=== PATIENT | male | born 1955 | race Caucasian/White ===

== ENCOUNTER 2022-10-07 10:08 | Inpatient (IN) ==
[2022-10-07 10:49] LABS: Basophils # (auto) 0.05 K/uL (0-0.2); Basophils % (auto) 0.8 %; Eosinophils # (auto) 0.07 K/uL (0-0.50); Eosinophils % (auto) 1.2 %; Hematocrit (blood only) 46.1 % (40.1-51.0); Hemoglobin 14.6 g/dl (14.0-18.0); Immature Granulocytes # (auto) 0.01 K/uL (0.00-0.02); Immature Granulocytes % (auto) 0.2 %; Lymphocytes # (auto) 1.31 K/uL (1.2-3.4); Lymphocytes % (auto) 22.2 %; Mean Corpuscular Hemoglobin 29.1 pg (25.0-34.0); Mean Corpuscular Hgb Conc 31.7 g/dL (32.0-36.0); Mean Corpuscular Volume 91.8 fL (80.0-100.0); Mean Platelet Volume 12.3 fL (9.4-12.4); Monocytes % (auto) 10.2 %; Neutrophils # (auto) 3.86 K/uL (1.4-6.5); Neutrophils % (auto) 65.4 %; Platelet Count 124 K/uL (130-400); RDW Coefficient of Variation 14.6 % (11.5-14.5); RDW Standard Deviation 49.1 fL (36.4-46.3); Red Blood Count 5.02 M/uL (4.63-6.08)
[2022-10-07] MEDS ORDERED: ALBUTEROL 0.083% NEBU SOLN 3 ML VIAL NEB STA (11:06)
--- NOTE | 2022-10-07 11:06 | Emergency Department Note ---
Impression & Plan COPD exacerbation, Breath shortness ED Provider Note NAME: RODRIGO SCRUGGS AGE: 67 SEX: M : 1955 ARRIVES VIA: Ambulance INFORMANT: Patient ED PROVIDER(S): Ike Real DO CHIEF COMPLAINT: shortness of breath HPI: Patient is a 67-year-old male with a 40+ year smoker with a past medical history of COPD, diabetes, CVD, hypertension, hyperlipidemia who presents ER for shortness of breath. Symptoms have been present for the past 2 to 3 months. The been gradually getting worse. Been using inhaler with no significant improvement. Symptoms have gotten significant worse today. Saw PCP today and was referred in. They were going to place him on steroids. He denies any belly pain, nausea, vomiting, or diarrhea. No dysuria, urgency, or frequency. No other exacerbating or remitting factors. Again no chest pain. ROS: See above HPI for pertinent positives & negatives. A total of 10 systems reviewed and were otherwise negative. PAST MEDICAL HISTORY:See Below PAST SURGICAL HISTORY:See Below FAMILY HISTORY:See Below SOCIAL HISTORY:See Below HOME MEDICATIONS:See Below ALLERGIES:See Below VITALS:See Below PHYSICAL EXAMINATION: GENERAL: Sitting up in bed, alert, conically ill-appearing, disheveled with persistent cough and dyspneic with conversation EYE EXAM: normal conjunctiva. PERRL and EOM's grossly intact. OROPHARYNX: no exudate, no erythema, lips, buccal mucosa, and tongue normal and mucous membranes are moist NECK: supple, no nuchal rigidity, no adenopathy, non-tender LUNGS: Diffuse wheezing bilaterally with poor air movement. Normal chest wall mechanics HEART: no murmurs, S1 normal and S2 normal ABDOMEN: abdomen soft, non-tender, normo-active bowel sounds, no masses, no rebound or guarding. UPPER EXTREMITIES: upper extremities are grossly normal. LOWER EXTREMITIES: Pitting edema in lower extremities NEURO EXAM: Normal sensorium, cranial nerves II-XII grossly intact, normal speech, no gross weakness of arms, no gross weakness of legs. MEDICAL DECISION MAKING: Patient is a 67-year-old male who presents the ER for shortness of breath referred in by PCP. Upon arrival dyspneic with conversation. IV was established blood work is obtained. Labs show no significant leukocytosis or anemia. INR was unremarkable. BMP was unremarkable. T bili slightly up at 1.4. LFTs bilirubin was unremarkable. Troponin was negative. Influenza RSV and COVID was negative. Chest x-ray was clean. EKG was nondiagnostic. Given hour-long neb treatment as well as steroids and still significantly short of b reath. Discussed with hospitalist for further evaluation. Triage Nursing notes reviewed. Limited review of prior medical records performed Vital Signs: reviewed and remarkable for no significant abnormalities Differential diagnosis: Differential diagnoses includes but is not limited to pneumonia, bronchitis, COPD/Asthma exacerbation, pneumothorax, pulmonary embolism, congestive heart failure, acute coronary syndrome ER treatment provided: See below Diagnostics interpreted by me: ECG: Sinus rhythm rate of 97 Normal axis No PVCs QTC 497 Cardiac Monitoring: An order was placed for continuous cardiac monitoring. The monitor shows a rate of 92 with sinus rhythm. Laboratory studies: As stated above and show below. Imaging studies: Chest x-ray without any focal infiltrate Consultation(s): Discussed with hospitalist Dr. Oscar Love for further evaluation Procedures: none Critical Care: None Past Med/Surg History Medical History BPH (benign prostatic hyperplasia) Cerumen impaction DM (diabetes mellitus), type 2, uncontrolled Elevated liver enzymes Hepatitis C infection Hyperlipidemia Vertebral artery stenosis Surgical History H/O cardiac catheterization History of hand surgery History of hernia repair History of surgical procedure S/P complete atrioventricular canal repair Family History Mother Myocardial infarction Cardiac disorder Father Myocardial infarction Daughter Asthma Brother Cardiac disorder Congestive heart failure Diabetes Sister Diabetes Denies family history of Ovarian cancer Prostate cancer Breast cancer Colorectal cancer Social History Smoking Status: Current every day smoker Tobacco Type: Cigarettes Cigarettes Per Day: 5-6 cigarettes per day; Second Hand Exposure: Yes; Do You Dip or Chew Tobacco: No; Hx Alcohol Use: Yes Hx Substance Use: No Preferred Language: Surinamese Communication Ability: Effective 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 marital status: Current Living Situation: Other Current Living Situation Comment: roomate current occupational status: disabled How many Children do You have: 3 Feels Safe at Home: Yes Childhood Exposure to Second-Hand Smoke: Yes caffeine: Yes Dental Care, Regularly: No Physical Activity Frequency: 1-2 Times per Week Seatbelt Use: always Sunscreen Use: No Assistive Devices: Glasses Allergies Allergies Allergy/AdvReac Type Severity Reaction Status Date / Time No Known Allergies Allergy Verified 10/07/22 15:04 Home Meds Home Medications Medication Instructions Recorded Confirmed aspirin 81 mg tablet,delayed 81 mg PO DAILY 10/07/22 10/07/22 release clopidogrel 75 mg tablet 75 mg PO DAILY 10/07/22 10/07/22 metformin 500 mg tablet 1,000 mg PO BID 10/07/22 10/07/22 pravastatin 40 mg tablet 40 mg PO HS 10/07/22 10/07/22 Previous Rx's Medication Instructions Recorded nicotine 14 mg/24 hr daily 1 patch transdermal DAILY #28 ea 06/26/21 transdermal patch nicotine 21 mg/24 hr daily 1 patch transdermal DAILY #28 ea 06/26/21 transdermal patch nicotine 7 mg/24 hr daily 1 patch transdermal Q24H #28 ea 06/26/21 transdermal patch carvedilol 6.25 mg tablet 6.25 mg PO BID #180 tabs 01/28/22 tamsulosin 0.4 mg capsule 0.4 mg PO DAILY #90 caps 01/28/22 glimepiride 2 mg tablet 4 mg PO DAILY #60 tabs 03/24/22 insulin glargine 100 unit/mL (3 26 unit (0.26 mL) subcut HS #3 mL 04/09/22 mL) subcutaneous pen (Lantus Solostar U-100 Insulin) gabapentin 600 mg tablet 600 mg PO BID #60 tabs 07/03/22 pen needle, diabetic 31 gauge x #100 ea 09/22/2202/04" (BD Ultra-Fine Mini Pen Needle) albuterol sulfate 90 mcg/actuation 2 puff inhalation QID PRN 10/07/22 aerosol inhaler shortness of breath or wheezing #6.7 grams Results & Data (ED) Vital Signs Vital Signs - 24 hr 10/07/22 10:23 10/07/22 10:23 10/07/22 10:23 Temperature 36.8 C Temperature Source Oral Pulse Rate 97 H Respiratory Rate 20 Respiratory Effort / Characteristics Short of Breath Blood Pressure 114/82 Blood Pressure Mean 92 Pulse Oximetry 98 94 Oxygen Delivery Method Room Air Room Air Room Air Sepsis Recent Fever Within 48 Hours No Sepsis New/Unexplained Change in Mental Status N/A Sepsis Action Taken by Nursing No Action Required 10/07/22 10:43 10/07/22 11:00 10/07/22 11:00 Temperature Temperature Source Pulse Rate 95 H Respiratory Rate 21 Respiratory Effort / Characteristics Blood Pressure 117/86 Blood Pressure Mean 96 Pulse Oximetry 94 95 Oxygen Delivery Method Room Air Room Air Sepsis Recent Fever Within 48 Hours Sepsis New/Unexplained Change in Mental Status Sepsis Action Taken by Nursing 10/07/22 11:28 10/07/22 11:31 10/07/22 12:00 Temperature Temperature Source Pulse Rate 101 H 91 H Respiratory Rate 20 18 16 Respiratory Effort / Characteristics Spontaneous Blood Pressure 115/73 Blood Pressure Mean 87 Pulse Oximetry 96 100 100 Oxygen Delivery Method Room Air Nebulizer Nebulizer Sepsis Recent Fever Within 48 Hours Sepsis New/Unexplained Change in Mental Status Sepsis Action Taken by Nursing 10/07/22 12:30 10/07/22 12:30 Temperature Temperature Source Pulse Rate 92 H Respiratory Rate 14 Respiratory Effort / Characteristics Blood Pressure 120/69 Blood Pressure Mean 86 Pulse Oximetry 100 Oxygen Delivery Method Sepsis Recent Fever Within 48 Hours Sepsis New/Unexplained Change in Mental Status Sepsis Action Taken by Nursing Laboratory Data Result diagrams: 10/07/22 10:15 10/07/22 11:24 Lab Results 10/07/22 10/07/22 10/07/22 Range/Units 10:15 10:15 10:15 WBC 5.90 (4.8-10.8) K/ul RBC 5.02 (4.63-6.08) M/uL Hgb 14.6 (14.0-18.0) g/dl Hct 46.1 (40.1-51.0) % MCV 91.8 (80.0-100.0) fL MCH 29.1 (25.0-34.0) pg MCHC 31.7 L (32.0-36.0) g/dL RDW Std Deviation 49.1 H (36.4-46.3) fL RDW Coeff of Epifanio 14.6 H (11.5-14.5) % Plt Count 124 L (130-400) K/uL MPV 12.3 (9.4-12.4) fL Immature Gran % (Auto) 0.2 % Neut % (Auto) 65.4 % Lymph % (Auto) 22.2 % [place] % (Auto) 10.2 % Eos % (Auto) 1.2 % Baso % (Auto) 0.8 % Neut # (Auto) 3.86 (1.4-6.5) K/uL Lymph # (Auto) 1.31 (1.2-3.4) K/uL [place] # (Auto) 0.60 (0.24-0.82) K/uL Eos # (Auto) 0.07 (0-0.50) K/uL Baso # (Auto) 0.05 (0-0.2) K/uL Immature Gran # (Auto) 0.01 (0.00-0.02) K/uL PT Cancelled INR Cancelled APTT Cancelled PTT Ratio Cancelled Sodium Cancelled Potassium Cancelled Chloride Cancelled Carbon Dioxide Cancelled Anion Gap Cancelled BUN Cancelled Creatinine Cancelled Est Cr Clr Drug Dosing Cancelled Est GFR ( Amer) Cancelled Est GFR (Non-Af Amer) Cancelled BUN/Creatinine Ratio Cancelled Glucose Cancelled Calcium Cancelled Magnesium Cancelled Total Bilirubin Cancelled AST Cancelled ALT Cancelled Alkaline Phosphatase Cancelled Troponin I High Sens Cancelled Total Protein Cancelled Albumin Cancelled Globulin Cancelled Albumin/Globulin Ratio Cancelled SARS-CoV-2 (PCR) (Negative) Influenza Type A (PCR) (Neg) Influenza Type B (PCR) (Neg) RSV (RT-PCR) (Neg) 10/07/22 10/07/22 10/07/22 Range/Units 11:15 11:24 11:24 WBC (4.8-10.8) K/ul RBC (4.63-6.08) M/uL Hgb (14.0-18.0) g/dl Hct (40.1-51.0) % MCV (80.0-100.0) fL MCH (25.0-34.0) pg MCHC (32.0-36.0) g/dL RDW Std Deviation (36.4-46.3) fL RDW Coeff of Epifanio (11.5-14.5) % Plt Count (130-400) K/uL MPV (9.4-12.4) fL Immature Gran % (Auto) % Neut % (Auto) % Lymph % (Auto) % [place] % (Auto) % Eos % (Auto) % Baso % (Auto) % Neut # (Auto) (1.4-6.5) K/uL Lymph # (Auto) (1.2-3.4) K/uL [place] # (Auto) (0.24-0.82) K/uL Eos # (Auto) (0-0.50) K/uL Baso # (Auto) (0-0.2) K/uL Immature Gran # (Auto) (0.00-0.02) K/uL PT 12.8 H INR 1.2 H APTT 26.5 PTT Ratio 1.0 Sodium 140 Potassium 4.8 Chloride 106 Carbon Dioxide 28 Anion Gap 6 BUN 13 Creatinine 0.86 Est Cr Clr Drug Dosing 102.6 Est GFR ( Amer) 105.5 Est GFR (Non-Af Amer) 91.0 BUN/Creatinine Ratio 15.1 Glucose 85 Calcium 9.3 Magnesium 1.8 Total Bilirubin 1.4 H AST 54 H ALT 44 Alkaline Phosphatase 78 Troponin I High Sens 17.7 Total Protein 7.4 Albumin 4.0 Globulin 3.4 Albumin/Globulin Ratio 1.2 SARS-CoV-2 (PCR) NEGATIVE (Negative) Influenza Type A (PCR) Negative (Neg) Influenza Type B (PCR) Negative (Neg) RSV (RT-PCR) Negative (Neg) Administered Medications Discontinued Medications Albuterol (Albuterol 0.083% Nebu Soln 3 Ml Vial) 10 mg NEB NOW STA; Protocol Stop: 10/07/22 11:07 Last Admin: 10/07/22 11:27 Dose: 10 mg Documented By: KALIA Methylprednisolone (Methylprednisolone 40 Mg/Ml Vial) 40 mg IV NOW STA Stop: 10/07/22 11:07 Last Admin: 10/07/22 11:15 Dose: 40 mg Documented By: GARY Imaging Data Radiologist's Impression: Chest X-Ray 10/07/22 10:42 XR chest 1V portable CLINICAL HISTORY: SOB TECHNIQUE: Single frontal radiograph of the chest was obtained. Comparison: Comparison is made to low-dose CT chest 07/20/2022 FINDINGS: Median sternotomy wires are unchanged. Cardiomegaly is noted. The aortic arch is calcified. The lungs are clear. No evidence of pleural effusion or pneumothorax. IMPRESSION: No acute chest disease. Cardiomegaly is noted. ACT 112: Negative or not required by law. Electronically signed by: Star Padgett M.D. 10/07/2022 11:09 AM Discharge Plan Visit Data Chief Complaint: Shortness of Breath/Dyspnea Stated Complaint: SOB, EDEMA TO LOWER EXTREMITIES, RASH ON ELBOWS, ED Provider: Ike Real Discharge Problem: COPD exacerbation, Breath shortness Patient Disposition: Admitted As Inpatient Discharge Instructions Interventions: ED Discharge Assessment Last Done: 10/07/22 16:27
--- NOTE | 2022-10-07 11:10 | XRay Report ---
XR chest 1V portable CLINICAL HISTORY: SOB TECHNIQUE: Single frontal radiograph of the chest was obtained. Comparison: Comparison is made to low-dose CT chest 07/20/2022 FINDINGS: Median sternotomy wires are unchanged. Cardiomegaly is noted. The aortic arch is calcified. The lungs are clear. No evidence of pleural effusion or pneumothorax. IMPRESSION: No acute chest disease. Cardiomegaly is noted. ACT 112: Negative or not required by law. Electronically signed by: Star Padgett M.D. 10/07/2022 11:09 AM
[2022-10-07 11:51] LABS: INR 1.2 (0.9-1.1); Partial Thromboplastin Time 26.5 Seconds (21.0-31.0); Prothrombin Time 12.8 Seconds (9.0-12.0)
[2022-10-07 12:02] LABS: Troponin I High Sensitivity 17.7 pg/ml (0-20)
[2022-10-07 12:02] LABS: Influenza A virus by PCR Negative (Neg); Influenza B virus by PCR Negative (Neg); RSV by PCR Negative (Neg); SARS CoV2 RNA(COVID-19)Cepheid NEGATIVE (Negative)
[2022-10-07 12:09] LABS: Albumin Globulin Ratio 1.2 (0.9-2); BUN Creatinine Ratio 15.1 (10-20); Bilirubin,Total 1.4 mg/dl (0.2-1.0); Calcium 9.3 mg/dl (8.5-10.1); Creatinine Clr Calc Pharmacy 102.6 ml/min; Est GFR (African American) 105.5 ml/min; Globulin 3.4 gm/dl (2.5-4.0); Magnesium 1.8 mg/dl (1.7-2.4); Potassium 4.8 mmol/L (3.5-5.1); Total Protein 7.4 gm/dl (6.0-8.3)
--- NOTE | 2022-10-07 14:09 | Electrocardiogram Report ---
Test Reason : Blood Pressure : / mmHG Vent. Rate : 097 BPM Atrial Rate : 097 BPM P-R Int : 150 ms QRS Dur : 098 ms QT Int : 392 ms P-R-T Axes : 050 038 082 degrees QTc Int : 497 ms Normal sinus rhythm Low voltage QRS Nonspecific T wave abnormality Abnormal ECG No previous ECGs available Confirmed by Sebastian Leon ([id number]) on 10/07/2022 2:09:20 PM Referred By: REFERRED SELF Confirmed By:Sebastian Leon
--- NOTE | 2022-10-07 14:38 | History & Physical Report ---
Date of Service October 07, 2022 Assessment & Plan (1) COPD exacerbation: Plan: 0-2 cigarettes a day, previously quit for 5 years. Lung function tests recommended as outpatient Ora Talbot - has sample from his PCP office with him, will start this now Azithromycin 500mg PO daily for 3 days Duonebs QID Solu-medrol 40mg IV BID Likely can be switched to PO prednisone tomorrow and consider discharge, consider duonebs at home (pt reports having the machine) (2) Leg swelling: Plan: Suspect some right sided heart failure in setting of COPD He also has known hepatitis C of his liver Will get urine protein/cr ratio to complete workup for renal involvement TTE to assess for congestive heart failure and possible benefit of diuretics - he also has known aortic stenosis so will assess whether this has progressed US venous doppler to r/o DVT (3) Smoker: Plan: Smoking cessation discussed with patient. Declined nicotine patch. (4) Pruritic rash: Plan: Used new body wash this morning Appears allergic, will start Tina and (steroids for COPD) (5) DM (diabetes mellitus), type 2, uncontrolled: Plan: HBA1C 6.8 in March, will repeat with AM labs Consult pharmacy for glycemic control during inpatient admission while on steroids (6) Peripheral neuropathy: Plan: Continue his routine gabapentin 600mg PO BID (7) HTN (hypertension): Plan: Continue carvedilol 6.25mg PO BID (8) BPH (benign prostatic hyperplasia): Plan: Continue tamsulosin 0.4mg PO daily (9) Coronary artery disease: Plan: Continue aspirin, clopidogrel, carvedilol and pravastatin Plan VTE Prophyalxis - lovenox 40mg SQ daily Diet - heart healthy Disposition - observation status to med/surg Admission and Anticipated Discharge Date Admission Date: October 07, 2022 History of Present Illness Chief Complaint: Shortness of breath Primary Care Provider: Kerry Heller MD Silvano Koehler is a 67 year old male who presents to the ER with shortness of breath. He reports this has been going on for many months and needing his albuterol inhaler on a daily basis but he has been much worse over the last week with associated swelling in both his legs. He reports seeing his primary care physician today and recommended going to the ER due to the severity of his symptoms but he was given a Trelegy Ellipta inhaler to start using. He reports not taking a course of steroids or being on a maintenance inhaler prior to this. Asscoaited non productive cough. No chest pain, nasal congestion, fever, chills, sinus pain. In the ER he was given Solu-medrol and an hour long duoneb which he reports feeling much improved compared to his 20 minute duoneb at home. Given significant respiratory distress and wheezing despite not needing oxygen he was referred to medicine for admission and management of COPD exacerbation. Allergies Allergy/AdvReac Type Severity Reaction Status Date / Time No Known Allergies Allergy Verified 10/07/22 15:04 Home Medications Medication Instructions Recorded Confirmed Type nicotine 14 mg/24 hr daily 1 patch transdermal DAILY #28 ea 06/26/21 10/07/22 Rx transdermal patch nicotine 21 mg/24 hr daily 1 patch transdermal DAILY #28 ea 06/26/21 10/07/22 Rx transdermal patch nicotine 7 mg/24 hr daily 1 patch transdermal Q24H #28 ea 06/26/21 10/07/22 Rx transdermal patch carvedilol 6.25 mg tablet 6.25 mg PO BID #180 tabs 01/28/22 10/07/22 Rx tamsulosin 0.4 mg capsule 0.4 mg PO DAILY #90 caps 01/28/22 10/07/22 Rx glimepiride 2 mg tablet 4 mg PO DAILY #60 tabs 03/24/22 10/07/22 Rx insulin glargine 100 unit/mL (3 26 unit (0.26 mL) subcut HS #3 mL 04/09/22 10/07/22 Rx mL) subcutaneous pen (Lantus Solostar U-100 Insulin) gabapentin 600 mg tablet 600 mg PO BID #60 tabs 07/03/22 10/07/22 Rx pen needle, diabetic 31 gauge x #100 ea 09/22/22 Rx 3/16" (BD Ultra-Fine Mini Pen Needle) albuterol sulfate 90 mcg/actuation 2 puff inhalation QID PRN 10/07/22 10/07/22 Rx aerosol inhaler shortness of breath or wheezing #6.7 grams aspirin 81 mg tablet,delayed 81 mg PO DAILY 10/07/22 10/07/22 History release clopidogrel 75 mg tablet 75 mg PO DAILY 10/07/22 10/07/22 History metformin 500 mg tablet 1,000 mg PO BID 10/07/22 10/07/22 History pravastatin 40 mg tablet 40 mg PO HS 10/07/22 10/07/22 History Past Med/Surg History Medical History BPH (benign prostatic hyperplasia) Cerumen impaction DM (diabetes mellitus), type 2, uncontrolled Elevated liver enzymes Hepatitis C infection Hyperlipidemia Vertebral artery stenosis Surgical History H/O cardiac catheterization History of hand surgery History of hernia repair History of surgical procedure S/P complete atrioventricular canal repair Family History Mother Myocardial infarction Cardiac disorder Father Myocardial infarction Daughter Asthma Brother Cardiac disorder Congestive heart failure Diabetes Sister Diabetes Denies family history of Ovarian cancer Prostate cancer Breast cancer Colorectal cancer Social History Smoking Status: Current every day smoker Tobacco Type: Cigarettes Cigarettes Per Day: 5-6 cigarettes per day; Second Hand Exposure: Yes; Do You Dip or Chew Tobacco: No; Hx Alcohol Use: Yes Hx Substance Use: No Preferred Language: Khmer Communication Ability: Effective 3D Animator Required: No marital status: Current Living Situation: Other Current Living Situation Comment: roomate current occupational status: disabled How many Children do You have: 3 Feels Safe at Home: Yes Childhood Exposure to Second-Hand Smoke: Yes caffeine: Yes Dental Care, Regularly: No Physical Activity Frequency: 1-2 Times per Week Seatbelt Use: always Sunscreen Use: No Assistive Devices: Glasses Review of Systems Review of Systems: All systems reviewed & are unremarkable except as noted in HPI & below Physical Exam Constitutional: WD/WN, vitals as above + obese Eyes: PERRL, conjunctivae normal, anicteric sclerae ENMT: external ear and nose normal, oropharynx normal Neck: trachea midline, no thyromegaly Respiratory: + respiratory distress, + labored breathing, + uses accessory muscles and + cough; + abnormal respiratory effort, expiratory phase not prolonged, no pursed lip breathing and no stridor Auscultation: + diminished lung sounds (posteriorly) and + wheezes (expiratory); breath sounds present, no crackles, no rales and no rhonchi Cardiovascular: Rate/Rhythm: regular rate and regular rhythm Heart Sounds: + murmur (LAURENT 2/6 LUSB) Vessels: no JVD Extremities: normal capillary refill and + pedal edema (2+ b/l pretibial); no calf tenderness Gastrointestinal (Abdomen): normal bowel sounds, soft, nontender, no hepatosplenomegaly Musculoskeletal: no cyanosis or clubbing, extremities motor strength 5/5 Skin: + rash (flexor surface macular rash on upper extremities, antecubital and axilla) Neurologic: moves all extremities and awake; not confused Psychiatric: A+Ox3, euthymic affect Results & Data Results & Data ([facility]) Vital Signs (Past 12 Hours) Vital Signs Temp Pulse Resp BP Pulse Ox O2 Del Method 10/07/22 12:30 120/69 10/07/22 12:30 92 H 14 100 10/07/22 12:00 91 H 16 115/73 100 Nebulizer 10/07/22 11:31 101 H 18 100 Nebulizer 10/07/22 11:28 20 96 Room Air 10/07/22 11:00 95 H 21 95 Room Air 10/07/22 11:00 117/86 10/07/22 10:43 94 Room Air 10/07/22 10:23 94 Room Air 10/07/22 10:23 Room Air 10/07/22 10:23 36.8 C 97 H 20 114/82 98 Room Air Laboratory Results Abnormal lab results 10/07/22 10/07/22 10/07/22 Range/Units 10:15 11:24 11:24 WBC (4.8-10.8) K/ul Hgb (14.0-18.0) g/dl MCHC 31.7 L (32.0-36.0) g/dL RDW Std Deviation 49.1 H (36.4-46.3) fL RDW Coeff of Epifanio 14.6 H (11.5-14.5) % Plt Count 124 L (130-400) K/uL Lymph # (Auto) (1.2-3.4) K/uL PT 12.8 H (9.0-12.0) Seconds INR 1.2 H (0.9-1.1) POC Glucose (70-99) mg/dl Total Bilirubin 1.4 H (0.2-1.0) mg/dl AST 54 H (13-39) U/L 10/07/22 10/07/22 10/08/22 Range/Units 17:25 20:42 05:39 WBC 4.30 L (4.8-10.8) K/ul Hgb 13.7 L (14.0-18.0) g/dl MCHC 31.7 L (32.0-36.0) g/dL RDW Std Deviation 47.6 H (36.4-46.3) fL RDW Coeff of Epifanio (11.5-14.5) % Plt Count 115 L (130-400) K/uL Lymph # (Auto) 0.99 L (1.2-3.4) K/uL PT (9.0-12.0) Seconds INR (0.9-1.1) POC Glucose 170 H 145 H (70-99) mg/dl Total Bilirubin (0.2-1.0) mg/dl AST (13-39) U/L Diagnostic Findings XR chest 1V portable CLINICAL HISTORY: SOB TECHNIQUE: Single frontal radiograph of the chest was obtained. Comparison: Comparison is made to low-dose CT chest 07/20/2022 FINDINGS: Median sternotomy wires are unchanged. Cardiomegaly is noted. The aortic arch is calcified. The lungs are clear. No evidence of pleural effusion or pneumothorax. IMPRESSION: No acute chest disease. Cardiomegaly is noted. Medications Administered ER Medications Given: Solu-medrol 40mg IV Duoneb 10mg NEB ECG Indication: SOB/dyspnea Rate (beats per minute): 97 Rhythm: normal sinus Findings: + other (nonspecific T wave abnormality); no acute ischemic change Comparison ECG Date: no prior available Code Status & VTE Plan Code Status Full VTE Prophylaxis Plan VTE Prophylaxis will be ordered: Yes PG Care Time/CCT Total # of Minutes Spent Total Time Spent with Patient: Total time spent is greater than 50% in coordination of care (as documented) at patient's floor/unit and/or counseling patient: Coding Level of Care Code INT OBSERVATION CARE 70M LVL 3 Diagnoses COPD exacerbation J44.1 Leg swelling M79.89 Smoker F17.200 Pruritic rash L28.2 DM (diabetes mellitus), type 2, uncontrolled E11.65 Peripheral neuropathy G62.9 HTN (hypertension) I10 BPH (benign prostatic hyperplasia) N40.0 Coronary artery disease I25.10
[2022-10-07] MEDS ORDERED: PHARMACY GLYCEMIC MGMT CONSULT PRN (16:20)
[2022-10-07] MEDS ORDERED: FLUTICASONE FUROATE 100MCG 14 PUFFS/INHALER INH SCH (16:45)
[2022-10-07] MEDS ORDERED: GLUCAGON FOR INJ 1 MG VIAL IM PRN (16:45)
[2022-10-07] MEDS ORDERED: UMECLIDINIUM/VILANTEROL 62.5/25MCG 7 PUFFS/INHALER INH SCH (16:45)
[2022-10-07] MEDS ORDERED: DEXTROSE 50% 50 ML SYRINGE IV PRN (16:45)
[2022-10-07] MEDS ORDERED: GLUCOSE 10 TAB/TUBE PO PRN (16:45)
[2022-10-07] MEDS ORDERED: GLUCOSE 40% GEL 15 GM TUBE PO PRN (16:45)
[2022-10-07] MEDS ORDERED: CARBOHYDRATES FOR HYPOGLYCEMIA PO PRN (16:45)
[2022-10-07] MEDS: ALBUT/IPRATROP 3MG/0.5MG NEB 3 ML VIAL NEB SCH ×2 (17:57→19:24)
[2022-10-07] MEDS: FLUTICASONE/UMECLIDIN/VILANTER 100-62.5-25 INH SCH (18:27)
[2022-10-07] MEDS: carvediloL 6.25 MG TAB PO SCH (18:27)
[2022-10-07] MEDS: INSULIN ASPART PER UNIT SC SCH ×2 (18:32→21:08)
[2022-10-07] MEDS: FEXOFENADINE HCL 180 MG TAB PO SCH (18:42)
[2022-10-07] MEDS: AZITHROMYCIN 250 MG TAB PO SCH (19:00)
[2022-10-07] MEDS: PRAVASTATIN SOD 40 MG TAB PO SCH (20:28)
[2022-10-07] MEDS: GABAPENTIN 600 MG TAB PO SCH (20:28)
[2022-10-07] MEDS: methylPREDNISolone 40 MG in SYRINGE 0 ML IV SCH (20:28)
[2022-10-07] MEDS ORDERED: LANTUS PER UNIT CHARGE SQ ONE ×2 (21:00)
[2022-10-08 06:07] LABS: Hematocrit (blood only) 43.2 % (40.1-51.0); Hemoglobin 13.7 g/dl (14.0-18.0); Immature Granulocytes # (auto) 0.02 K/uL (0.00-0.02); Immature Granulocytes % (auto) 0.5 %; Lymphocytes # (auto) 0.99 K/uL (1.2-3.4); Mean Platelet Volume 11.9 fL (9.4-12.4); Monocytes # (auto) 0.25 K/uL (0.24-0.82); Monocytes % (auto) 5.8 %; Neutrophils # (auto) 3.04 K/uL (1.4-6.5); Neutrophils % (auto) 70.7 %; Platelet Count 115 K/uL (130-400)
[2022-10-08 06:32] LABS: Echinocytes 3+; Mean Corpuscular Hemoglobin 28.7 pg (25.0-34.0); Mean Corpuscular Hgb Conc 31.7 g/dL (32.0-36.0); Mean Corpuscular Volume 90.6 fL (80.0-100.0); RDW Coefficient of Variation 14.3 % (11.5-14.5); RDW Standard Deviation 47.6 fL (36.4-46.3); Red Blood Count 4.77 M/uL (4.63-6.08)
[2022-10-08 06:34] LABS: Estimated Average Glucose 114 mg/dl; Hemoglobin A1C 5.6 % (4.5-5.6)
[2022-10-08 06:45] LABS: BUN Creatinine Ratio 18.7 (10-20); Calcium 9.1 mg/dl (8.5-10.1); Est GFR (African American) 102.1 ml/min; Est GFR (Non-African American) 88.1 ml/min
[2022-10-08] MEDS: ALBUT/IPRATROP 3MG/0.5MG NEB 3 ML VIAL NEB SCH ×2 (07:12→11:02)
--- NOTE | 2022-10-08 08:23 | Ultrasound Report ---
ULTRASOUND BILATERAL LOWER EXTREMITY VENOUS CLINICAL HISTORY: Lower extremity edema. COMPARISON STUDY: No priors. TECHNIQUE: Real-time, grayscale, and color Doppler sonography of the deep veins of the right and left lower extremity was performed from the inguinal crease to the calf. Compression and augmentation wer e utilized. FINDINGS: There is no sonographic evidence of deep venous thrombosis identified in the right or left lower extremity. The common femoral, superficial femoral, and popliteal veins are patent and normally compressible bilaterally. The greater saphenous vein and the profunda femoris vein at the junction w ith the common femoral vein are clear in both legs. The visualized calf veins are patent bilaterally. Soft tissue edema is noted in the right leg. IMPRESSION: There is no sonographic evidence of deep venous thrombosis identified in the right or lef t lower extremity. ACT 112: Negative or not required by law. Electronically signed by: Vignesh López M.D. 10/08/2022 8:22 AM
[2022-10-08] MEDS ORDERED: Flu Vaccine-High Dose (Fluzone-HD) PF 65+ 0.7mL SYR IM ONE (09:00)
[2022-10-08] MEDS: TAMSULOSIN HCL 0.4 MG CAP PO SCH (09:04)
[2022-10-08] MEDS: GABAPENTIN 600 MG TAB PO SCH ×2 (09:04→20:03)
[2022-10-08] MEDS: FEXOFENADINE HCL 180 MG TAB PO SCH (09:04)
[2022-10-08] MEDS: ASPIRIN 81 MG ECTAB PO SCH (09:05)
[2022-10-08] MEDS: AZITHROMYCIN 250 MG TAB PO SCH (09:05)
[2022-10-08] MEDS: carvediloL 6.25 MG TAB PO SCH ×2 (09:05→17:38)
[2022-10-08] MEDS: CLOPIDOGREL BISULFATE 75 MG TAB PO SCH (09:05)
[2022-10-08] MEDS: methylPREDNISolone 40 MG in SYRINGE 0 ML IV SCH ×2 (09:08→20:03)
[2022-10-08] MEDS: FLUTICASONE/UMECLIDIN/VILANTER 100-62.5-25 INH SCH (09:08)
[2022-10-08] MEDS: ENOXAPARIN INJ 40 MG/0.4 ML SYR SQ SCH (09:08)
[2022-10-08] MEDS: INSULIN ASPART PER UNIT SC SCH ×4 (09:15→21:41)
--- NOTE | 2022-10-08 09:36 | Pharmacy Report ---
Pharmacy Glycemic Short Note 2 - Date of Service October 08, 2022 - Glycemic Short BSG Results (Last 24 hours): 10/07/22 10/07/22 10/07/22 10:15 11:24 17:25 Glucose Cancelled 85 POC Glucose 170 H 10/07/22 10/08/22 10/08/22 20:42 05:39 08:39 Glucose 177 H POC Glucose 145 H 141 H OUTPATIENT ANTIDIABETIC REGIMEN: * Lantus 26 units HS * glimepiride,metformin * A1c 5.6% 10/08 ASSESSMENT: * Patient admitted with COPD exacerbation, currently on methylprednisolone IV 40 mg BID * A1c indicates good outpatient control (if not experiencing frequent hypoglycemia) * Fasting 141 mg/dL this AM, will continue home lantus dosing for now- monitor for trend with steroid use * Novolog parameters weight based stress of 2- continue for now, tighten carb ratio if BSGs trend up with steroids PLAN FOR INPATIENT GLYCEMIC CONTROL: * Hold outpatient oral diabetes medications * Basal insulin * Lantus 26 units SQ HS * Bolus insulin * NovoLog per scale ACHS or Q6hrs while NPO * Goal Range: Low 110 mg/dL - High 140 mg/dL * Correction Factor: 25 mg/dL/unit * Nutritional / Prandial insulin per carb ratio of 1 unit per 8 grams CHO consumed
[2022-10-08 10:57] LABS: Appearance Urine Clear (Clear); Bacteria Urine Automated Negative (Negative); Bilirubin Urine Negative (Negative); Blood Urine Negative (Negative); Color Urine Dark Yellow; Glucose Urine UA Negative (Negative); Ketones Urine 1+ (Negative); Leukocyte Esterase Urine Negative (Negative); Nitrite Urine Negative (Negative); Protein Urine 1+ (Negative); RBC Urine Automated 0-4 /hpf (0-4); Specific Gravity Urine 1.023 (1.000-1.030); Urobilinogen Urine Negative (Negative)
[2022-10-08 11:24] LABS: Creatinine Urine Random 120.8 mg/dl; Protein Creatinine Ratio Urine 0.3 (0-0.2); Total Protein Urine Random 38.1 mg/dl (0-11.9)
--- NOTE | 2022-10-08 11:47 | XCELERA ---
[id number]
[2022-10-08] MEDS ORDERED: ALBUT/IPRATROP 3MG/0.5MG NEB 3 ML VIAL NEB PRN (12:23)
--- NOTE | 2022-10-08 14:25 | Cardiology Consultation ---
Date of Consultation October 08, 2022 Assessment & Plan (1) Heart failure with mid-range ejection fraction: (2) COPD exacerbation: (3) Coronary artery disease: (4) S/P CABG x 5: (5) Moderate aortic stenosis: (6) Severe mitral regurgitation: (7) Smoker: (8) DM (diabetes mellitus), type 2, uncontrolled: Plan 67-year-old man with multiple comorbidities admitted with subacute onset congestive heart failure and found to have moderately reduced LV systolic function (EF 30-35%), moderate aortic stenosis, newly severe mitral regurgitation, and evidence of reduced right heart function/pulmonary hypertension/elevated CVP. Initially, he was treated for COPD exacerbation with IV steroids and inhaled beta agonists. Despite his fairly unremarkable chest x-ray his symptoms are suggestive of subacute heart failure and he does appear hypervolemic on exam. Suspect that even mild volume overload results in exacerbation of his bronchospasm. Therefore, would recommend diuresis, could start with furosemide 40 mg IV daily. Will check BNP now and again as outpatient for baseline, since differentiating COPD exacerbation with and without an element of heart failure may be difficult in the future as well. Blood pressure is low normal and further afterload reduction may be difficult in the context of moderate aortic stenosis. Continue lisinopril and carvedilol, could titrate upward if BP allows in the future (no immediate change, given that he will be diuresing and more prone to hypotension). Certainly, his valvular disease plays a significant role with aortic stenosis increasing afterload and perhaps magnifying his degree of mitral regurgitation. In addition, left ventricular dilation likely increases severity of mitral regurgitation as well. Hopefully, with diuresis and, if able, further afterload reduction, his mitral regurgitation will improve. If not, he has high risk for repeat cardiac surgery given his ongoing tobacco use, prior CABG, and multiple comorbidities. Therefore, could consider transcatheter aortic valve replacement to decrease afterload followed by reassessment of mitral regurgitation. First step is medical management. May be a candidate for Entresto and Jardiance in the future, would first monitor his response to diuresis. Followed routinely by Dr. Johnson, who likely will be able to see him tomorrow morning and offer further recommendations. Would also recommend follow-up in heart failure clinic. History of Present Illness Reason for Consultation: severe reduction in EF since last study Requesting Physician: Bobbi Colon DO Attending Physician: Bobbi Colon DO History of Present Illness 67-year-old man with history of CAD (remote stenting followed by 5 vessel CABG 2012), moderate aortic stenosis, cerebrovascular disease (left carotid endarterectomy 2012), COPD with ongoing tobacco use, diabetes mellitus, and dyslipidemia who was admitted 10/07/2022 with subacute onset congestive heart failure. Patient had been doing well as recently as July 2022, noting no lifestyle limiting dyspnea on exertion at that time. Over about the past month he has noted progressive leg edema and dyspnea with more than minor exertion as well as a nonproductive cough which was worse at night. No chest pain at any time, palpitations, orthopnea, or PND. In the ER, he was noted to have significant bronchospasm and he was admitted for further evaluation. Evaluation here showed sinus rhythm with nonspecific T wave flattening, normal troponin, and multiple new findings on his echocardiogram when compared with a 2019 study. These include a decline in left ventricular systolic function from initially normal ejection fraction to current value of 30 to 35%, previously noted inferobasal akinesis with new global hypokinesis and apical akinesis, mild progression of moderate aortic stenosis (calculated valve area 1.4 cm), marked increase in previously mild and now severe mitral regurgitation, and current evidence of moderately dilated right ventricle with moderately reduced systolic function, mild pulmonary hypertension, and elevated central venous pressure. At the time of my evaluation, he was comfortable at rest, but did have intermittent paroxysms of nonproductive coughing. Allergies Allergy/AdvReac Type Severity Reaction Status Date / Time No Known Allergies Allergy Verified 10/07/22 15:04 Home Medications Medication Instructions Recorded Confirmed Type nicotine 14 mg/24 hr daily 1 patch transdermal DAILY #28 ea 06/26/21 10/07/22 Rx transdermal patch nicotine 21 mg/24 hr daily 1 patch transdermal DAILY #28 ea 06/26/21 10/07/22 Rx transdermal patch nicotine 7 mg/24 hr daily 1 patch transdermal Q24H #28 ea 06/26/21 10/07/22 Rx transdermal patch carvedilol 6.25 mg tablet 6.25 mg PO BID #180 tabs 01/28/22 10/07/22 Rx tamsulosin 0.4 mg capsule 0.4 mg PO DAILY #90 caps 01/28/22 10/07/22 Rx glimepiride 2 mg tablet 4 mg PO DAILY #60 tabs 03/24/22 10/07/22 Rx insulin glargine 100 unit/mL (3 26 unit (0.26 mL) subcut HS #3 mL 04/09/22 10/07/22 Rx mL) subcutaneous pen (Lantus Solostar U-100 Insulin) gabapentin 600 mg tablet 600 mg PO BID #60 tabs 07/03/22 10/07/22 Rx pen needle, diabetic 31 gauge x #100 ea 09/22/22 Rx 02/04" (BD Ultra-Fine Mini Pen Needle) albuterol sulfate 90 mcg/actuation 2 puff inhalation QID PRN 10/07/22 10/07/22 Rx aerosol inhaler shortness of breath or wheezing #6.7 grams aspirin 81 mg tablet,delayed 81 mg PO DAILY 10/07/22 10/07/22 History release clopidogrel 75 mg tablet 75 mg PO DAILY 10/07/22 10/07/22 History metformin 500 mg tablet 1,000 mg PO BID 10/07/22 10/07/22 History pravastatin 40 mg tablet 40 mg PO HS 10/07/22 10/07/22 History Patient History Medical History BPH (benign prostatic hyperplasia) Cerumen impaction DM (diabetes mellitus), type 2, uncontrolled Elevated liver enzymes Hepatitis C infection Hyperlipidemia Vertebral artery stenosis Surgical History H/O cardiac catheterization History of hand surgery History of hernia repair History of surgical procedure S/P complete atrioventricular canal repair Family History Mother Myocardial infarction Cardiac disorder Father Myocardial infarction Daughter Asthma Brother Cardiac disorder Congestive heart failure Diabetes Sister Diabetes Denies family history of Ovarian cancer Prostate cancer Breast cancer Colorectal cancer Social History Smoking Status: Current every day smoker Tobacco Type: Cigarettes Cigarettes Per Day: 5-6 cigarettes per day; Second Hand Exposure: Yes; Hx Alcohol Use: Yes Hx Substance Use: No Preferred Language: Guatemalan Communication Ability: Effective 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 BP normotensive. Pulse 90 bpm and regular. Skin: no ecchymoses or generalized lesions. HEENT: unremarkable. Neck: Jugular venous pulse half to two thirds of the way to the angle of the jaw with increased respiratory variation, questionable faint transmitted carotid murmur. Lungs: Moderately decreased breath sounds with bilateral wheezing on forced exhalation. No accessory muscle use. Cardiac: regular rhythm, normal S1, significantly diminished but audible A2, 2/6 crescendo decrescendo systolic ejection murmur radiating upward, 3/6 apical holosystolic murmur rating to the axilla, no diastolic murmur or distinct gallop. Abdomen: benign. Extremities: 2+ pretibial edema, moderately delayed capillary refill (3 to 4 seconds), brisk radial and palpable dorsalis pedis pulses. Neurologic: Normal affect and conversation, nonfocal. Results & Data ([facility]) Vital Signs (Past 12 Hours) Vital Signs Temp Pulse Resp BP Pulse Ox O2 Del Method O2 Flow Rate 10/08/22 11:04 91 H 18 96 Room Air 10/08/22 08:56 100 H 95 Room Air 10/08/22 08:16 Nasal Cannula 2 10/08/22 07:24 98.6 F 84 18 104/67 94 Room Air 10/08/22 07:13 82 18 94 Room Air Laboratory Results Normal electrolytes, BUN 17, creatinine 0.91. Troponin 17.7. Diagnostic Findings ECG and echocardiogram as per HPI. Chest x-ray showed cardiomegaly and calcified aortic arch, clear lungs. Diaphragms appear flattened, consistent with COPD. Lower extremity venous Dopplers negative for DVT. PG Care Time/CCT Total # of Minutes Spent Total Time Spent with Patient: Total time spent is greater than 50% in coordination of care (as documented) at patient's floor/unit and/or counseling patient: Coding Level of Care Code 64806 Inpt Consult Level 4 Diagnoses Heart failure with mid-range ejection fraction I50.22 COPD exacerbation J44.1 Coronary artery disease I25.10 S/P CABG x 5 Z95.1 Moderate aortic stenosis I35.0 Severe mitral regurgitation I34.0 Smoker F17.200 DM (diabetes mellitus), type 2, uncontrolled E11.65
--- NOTE | 2022-10-08 14:30 | Hospitalist Progress Note ---
Date of Service October 08, 2022 Assessment & Plan (1) COPD exacerbation: Plan: Smoking history for several decades, had previously quit and now smokes about 2 cigarettes a day. Presented with shortness of breath over the last several months that acutely worsened over the last week causing him to use his albuterol inhaler much more frequently. Chest x-ray 10/07 without any acute chest disease noted. Patient started on methylprednisolone 40 mg twice daily; will transition to prednisone 40 mg daily. Azithromycin x3 days to complete on 10/10. Trelegy Ellipta inhaler 1 puff daily initiated. Albuterol nebs every 6 hours as needed for shortness of breath/wheezing. Smoking cessation encouraged. (2) Heart failure with mid-range ejection fraction: Plan: Patient with extensive cardiac history of multivessel CAD status post CABG x5 in 2012. With complaints of shortness of breath and new leg swelling in bilateral lower extremities. Ultrasound of bilateral lower extremities without evidence of DVT. BNP elevated to 1100. Echocardiogram performed this admission shows significant decline in systolic function as well as diastolic dysfunction, with new wall motion abnormalities (LVEF 30-35%). Continue carvedilol 6.25 mg twice daily. Lisinopril started at 2.5 mg daily. Cardiology consulted and appreciate recommendations. Will need cardiology follow-up on discharge. Furosemide 40 mg IV given hypervolemia on exam with likely diuretic prescription on discharge. Will need referral for heart failure program. (3) Coronary artery disease: Plan: See above Continue aspirin, Plavix, beta-debbi, statin. (4) S/P CABG x 5: Plan: See above (5) DM2 (diabetes mellitus, type 2): Plan: A1c 5.6% on admission. Continue home Lantus 26 units daily with sliding scale coverage as needed. (6) HTN (hypertension): Plan: Continue carvedilol, add lisinopril for CHF as above. (7) Hyperlipidemia: Plan: Continue statin (8) Pruritic rash: Plan: Patient reports using a new shampoo a few days ago, no other new exposures. Patient is receiving steroids for COPD exacerbation, which appear to also be helping the rash. (9) Peripheral neuropathy: Plan: Continue home gabapentin 600 mg twice daily. (10) BPH (benign prostatic hyperplasia): Plan: Continue tamsulosin daily. Plan Full code Heart healthy, low-sodium, diabetic diet Lovenox 40 mg daily for DVT prophylaxis Med/Surg Admission and Anticipated Discharge Date Admission Date: October 07, 2022 Subjective Patient without any acute events overnight. Patient reports that his breathing is much better today compared to yesterday, still not at his baseline however. He complains of swelling in his legs which he reports he has never had before the last couple of weeks. He denies chest pain, abdominal pain, dizziness, nausea, vomiting. Review of Systems Review of Systems: All systems reviewed & are unremarkable except as noted in Subjective Physical Exam Constitutional: WD/WN, vitals as above Respiratory: Normal respiratory effort, lungs clear to auscultation with some wheezing with forced expiration diffusely Cardiovascular: Heart regular rate and rhythm with 3/6 systolic murmur at apex 2+ edema up to 3/[address] the marie Gastrointestinal (Abdomen): normal bowel sounds, soft, nontender, no hepatosplenomegaly Skin: Maculopapular pruritic rash on bilateral upper extremities, which patient reports is better today than yesterday Psychiatric: A+Ox3, euthymic affect Results & Data Results & Data ([facility]) Vital Signs (Past 12 Hours) Vital Signs Temp Pulse Resp BP Pulse Ox O2 Del Method O2 Flow Rate 10/08/22 11:04 91 H 18 96 Room Air 10/08/22 08:56 100 H 95 Room Air 10/08/22 08:16 Nasal Cannula 2 10/08/22 07:24 37.0 C 84 18 104/67 94 Room Air 10/08/22 07:13 82 18 94 Room Air PG Care Time/CCT Total # of Minutes Spent Total Time Spent with Patient: Total time spent is greater than 50% in coordination of care (as documented) at patient's floor/unit and/or counseling patient: Coding Level of Care Code 05115 Subseq Hosp Care Lvl 3 Diagnoses COPD exacerbation J44.1 Heart failure with mid-range ejection fraction I50.22 Coronary artery disease I25.10 S/P CABG x 5 Z95.1 DM2 (diabetes mellitus, type 2) E11.9 HTN (hypertension) I10 Hyperlipidemia E78.5 Pruritic rash L28.2 Peripheral neuropathy G62.9 BPH (benign prostatic hyperplasia) N40.0
[2022-10-08] MEDS: FUROSEMIDE 40 MG/4 ML VIAL IV SCH (15:55)
[2022-10-08] MEDS: PRAVASTATIN SOD 40 MG TAB PO SCH (20:03)
[2022-10-08] MEDS ORDERED: LANTUS PER UNIT CHARGE SQ SCH (21:00)
[2022-10-09] MEDS: ENOXAPARIN INJ 40 MG/0.4 ML SYR SQ SCH (08:01)
[2022-10-09] MEDS: FLUTICASONE/UMECLIDIN/VILANTER 100-62.5-25 INH SCH (08:01)
[2022-10-09] MEDS: CLOPIDOGREL BISULFATE 75 MG TAB PO SCH (08:02)
[2022-10-09] MEDS: predniSONE 20 MG TAB PO SCH (08:02)
[2022-10-09] MEDS: TAMSULOSIN HCL 0.4 MG CAP PO SCH (08:02)
[2022-10-09] MEDS: carvediloL 6.25 MG TAB PO SCH ×2 (08:02→17:26)
[2022-10-09] MEDS: FUROSEMIDE 40 MG/4 ML VIAL IV SCH (08:02)
[2022-10-09] MEDS: FEXOFENADINE HCL 180 MG TAB PO SCH (08:02)
[2022-10-09] MEDS: GABAPENTIN 600 MG TAB PO SCH ×2 (08:02→20:13)
[2022-10-09] MEDS: ASPIRIN 81 MG ECTAB PO SCH (08:02)
[2022-10-09] MEDS: AZITHROMYCIN 250 MG TAB PO SCH (08:02)
[2022-10-09] MEDS ORDERED: COUGH DROP (SUGAR FREE) LOZ 24 LOZ/1 BOX BUCCAL STA (08:20)
[2022-10-09] MEDS ORDERED: lisinopril 2.5 MG TAB PO SCH (09:00)
[2022-10-09] MEDS: INSULIN ASPART PER UNIT SC SCH ×4 (09:22→21:21)
[2022-10-09 10:10] LABS: BUN Creatinine Ratio 24.5 (10-20); Calcium 9.7 mg/dl (8.5-10.1); Creatinine Clr Calc Pharmacy 90.1 ml/min; Est GFR (African American) 93.4 ml/min; Est GFR (Non-African American) 80.6 ml/min; Potassium 4.3 mmol/L (3.5-5.1)
--- NOTE | 2022-10-09 10:21 | Hospitalist Progress Note ---
Date of Service October 09, 2022 Assessment & Plan (1) COPD exacerbation: Plan: Smoking history for several decades, had previously quit and now smokes about 2 cigarettes a day. Presented with shortness of breath over the last several months that acutely worsened over the last week causing him to use his albuterol inhaler much more frequently. Chest x-ray 10/07 without any acute chest disease noted. Patient started on methylprednisolone 40 mg twice daily; will transition to prednisone 40 mg daily. Azithromycin x3 days to complete on 10/10. Trelegy Ellipta inhaler 1 puff daily initiated. Albuterol nebs every 6 hours as needed for shortness of breath/wheezing. Smoking cessation encouraged. Mucinex 1200 mg twice daily. (2) Heart failure with mid-range ejection fraction: Plan: Patient with extensive cardiac history of multivessel CAD status post CABG x5 in 2012. With complaints of shortness of breath and new leg swelling in bilateral lower extremities. Ultrasound of bilateral lower extremities without evidence of DVT. BNP elevated to 1100. Echocardiogram performed this admission shows significant decline in systolic function as well as diastolic dysfunction, with new wall motion abnormalities (LVEF 30-35%). Continue carvedilol 6.25 mg twice daily. Lisinopril started at 2.5 mg daily. Cardiology consulted and appreciate recommendations. Will need cardiology follow-up on discharge, with plan for repeat echocardiogram once his fluid status is compensated. Furosemide 40 mg IV given hypervolemia on exam with likely diuretic prescription on discharge. Continue with monitoring of renal function. Will need referral for heart failure program. (3) Coronary artery disease: Plan: See above Continue aspirin, Plavix, beta-debbi, statin. (4) S/P CABG x 5: Plan: See above (5) DM2 (diabetes mellitus, type 2): Plan: A1c 5.6% on admission. Continue home Lantus 26 units daily with sliding scale coverage as needed. (6) HTN (hypertension): Plan: Continue carvedilol; add lisinopril for CHF as above. (7) Hyperlipidemia: Plan: Continue statin. (8) Pruritic rash: Plan: Patient reports using a new shampoo a few days ago, no other new exposures. Patient is receiving steroids for COPD exacerbation, which appear to also be helping the rash. (9) Peripheral neuropathy: Plan: Continue home gabapentin 600 mg twice daily. (10) BPH (benign prostatic hyperplasia): Plan: Continue tamsulosin daily. Plan Full code Heart healthy, low-sodium, diabetic diet Lovenox 40 mg daily for DVT prophylaxis Med/Surg Admission and Anticipated Discharge Date Admission Date: October 07, 2022 Subjective Patient without any acute events overnight. Does endorse an annoying cough sometimes productive of a scant amount of rust colored sputum. Still endorses leg swelling today but feels that his breathing is a little bit better today. Does not endorse any abdominal complaints such as pain, nausea, vomiting. Review of Systems Review of Systems: All systems reviewed & are unremarkable except as noted in Subjective Physical Exam Constitutional: WD/WN, vitals as above Respiratory: Normal respiratory effort, lungs clear to auscultation Cardiovascular: Heart regular rate and rhythm with 3/6 systolic murmur at apex 2+ edema up to 3/[address] the marie No JVD Gastrointestinal (Abdomen): normal bowel sounds, soft, nontender, no hepatosplenomegaly Skin: Maculopapular pruritic rash on bilateral upper extremities, faint, improved from yesterday Psychiatric: A+Ox3, euthymic affect Results & Data Results & Data ([facility]) Vital Signs (Past 12 Hours) Vital Signs Temp Pulse Pulse Resp BP BP Pulse Ox 10/09/22 07:35 36.3 C L 88 18 118/81 95 10/09/22 02:31 36.5 C 78 16 116/72 94 O2 Del Method 10/09/22 07:35 Room Air 10/09/22 02:31 Room Air PG Care Time/CCT Total # of Minutes Spent Total Time Spent with Patient: Total time spent is greater than 50% in coordination of care (as documented) at patient's floor/unit and/or counseling patient: Coding Level of Care Code 93885 Subseq Hosp Care Lvl 3 Diagnoses COPD exacerbation J44.1 Heart failure with mid-range ejection fraction I50.22 Coronary artery disease I25.10 S/P CABG x 5 Z95.1 DM2 (diabetes mellitus, type 2) E11.9 HTN (hypertension) I10 Hyperlipidemia E78.5 Pruritic rash L28.2 Peripheral neuropathy G62.9 BPH (benign prostatic hyperplasia) N40.0
--- NOTE | 2022-10-09 13:11 | Pharmacy Report ---
Pharmacy Glycemic Short Note 2 - Date of Service October 09, 2022 - Glycemic Short BSG Results (Last 24 hours): 10/08/22 10/08/22 10/09/22 16:57 20:31 08:10 Glucose POC Glucose 140 H 109 H 126 H 10/09/22 10/09/22 09:26 12:13 Glucose 150 H POC Glucose 125 H OUTPATIENT ANTIDIABETIC REGIMEN: * Lantus 26 units HS * Glimepiride 4 mg PO daily * Metformin 1000 mg PO BIDM HbA1c 5.6% 10/08 ASSESSMENT: 10/09/22 * BSGs well-controlled yesterday, ranging 109-163 mg/dL * Received 26 units of basal and 16 units of prandial/correctional bolus * Steroids changed from IV Solu-medrol to once prednisone 40 mg PO daily * Will allow for decreased dose of Lantus this evening based on BSG, no other changes anticipated to current insulin regimen today 10/08/22: * Patient admitted with COPD exacerbation, currently on methylprednisolone IV 40 mg BID * A1c indicates good outpatient control (if not experiencing frequent hypoglycemia) * Fasting 141 mg/dL this AM, will continue home lantus dosing for now- monitor for trend with steroid use * Novolog parameters weight based stress of 2- continue for now, tighten carb ratio if BSGs trend up with steroids PLAN FOR INPATIENT GLYCEMIC CONTROL: * Hold outpatient oral diabetes medications * Basal insulin * Lantus 20-25 units SQ HS (see protocol text) * Bolus insulin * NovoLog per scale ACHS or Q6hrs while NPO * Goal Range: Low 110 mg/dL - High 140 mg/dL * Correction Factor: 25 mg/dL/unit * Nutritional / Prandial insulin per carb ratio of 1 unit per 8 grams CHO consumed
--- NOTE | 2022-10-09 15:42 | Cardiology Progress Note ---
Date of Service October 09, 2022 Assessment & Plan (1) Heart failure with mid-range ejection fraction: Plan: -would continue intravenous Lasix until BUN and creatinine increase. -suspect decompensation may be related to dietary indiscretion with salt. -reviewed the concept of daily weights and sliding-scale diuretics. -have reached out to Sonia Guzman to follow the patient in the CHF program. (2) Coronary artery disease: Plan: -s/p CABG x, 2012 -quiescent on current medications. (3) Moderate aortic stenosis: Plan: -valve area calculated 1.4 cm2 on current echocardiogram. (4) Severe mitral regurgitation: Plan: -will recheck an echocardiogram once the patient is compensated. Admission and Anticipated Discharge Date Admission Date: October 07, 2022 Subjective The patient is resting comfortably at the bedside without complaints of chest pain or dyspnea. His lower extremity edema is improving. Physical Exam Physical Exam: In general this is a well-developed well-nourished white male in no acute distress. HEENT exam is negative. Neck is supple mildly delayed carotid upstrokes. There are no carotid bruits. Well-healed scar seen on the left neck. No jugular venous distension. There is no thyromegaly. Cardiovascular exam reveals a regular rhythm with distant heart sounds. A 2/6 basal systolic ejection murmurs noted. Chest reveals well-healed midline scar. Lungs are clear without rales, rhonchi, or wheezes. Abdomen is soft and nontender without bruits. Extremities reveal intact radial artery pulses bilaterally. There is 1 to 2+ pitting edema below the knees. Results & Data ([facility]) Vital Signs (Past 12 Hours) Vital Signs Temp Pulse Resp BP Pulse Ox O2 Del Method 10/09/22 08:30 Room Air 10/09/22 07:35 36.3 C L 88 18 118/81 95 Room Air PG Care Time/CCT Total # of Minutes Spent Total Time Spent with Patient: Total time spent is greater than 50% in coordination of care (as documented) at patient's floor/unit and/or counseling patient: Coding Level of Care Code 11079 Subseq Hosp Care Lvl 3 Diagnoses Heart failure with mid-range ejection fraction I50.22 Coronary artery disease I25.10 Moderate aortic stenosis I35.0 Severe mitral regurgitation I34.0
[2022-10-09] MEDS: guaiFENesin 600 MG TABCR PO SCH (20:13)
[2022-10-09] MEDS: PRAVASTATIN SOD 40 MG TAB PO SCH (20:13)
[2022-10-09] MEDS ORDERED: LANTUS PER UNIT CHARGE SQ SCH (21:00)
--- NOTE | 2022-10-10 01:45 | Communication Note ---
Date of Service: October 10, 2022 1:42AM. Notified of unwitnessed fall. Patient unsure of how fell. Also has low back pain. BP 86/49. BSG 80. On recheck, BP 104/69. On my assessment, patient has 8/10 bilat low back pain. TTP across low back. Denies paresthesias. He states he was staring out window, was getting up and fell, but does not know what happened after until woke up on floor. He denies prodrome or postictal. He knows he is in the hospital. Denies headache. plan: head CT because of syncopal episode (most likely vasovagal, especially w/ diuresis), patient not knowing mechanism of fall, and use of baby ASA and Plavix. However, w/ patient's CAD and EF 30-35, will transfer to [facility] for cardiac monitoring overnight to r/o arrhythmia. Per BSG 80, less likely related to hypoglycemia. Lidocaine patch and tylenol for low back pain. Ordered PT and OT evals. CT head statrad: Examination mildly limited by motion artifact. No acute intracranial hemorrhage, midline shift, or mass-effect. No convincing evidence for acute transcortical infarct. Hypodensity in the high left parietal lobe (image 18 series 4) may reflect volume averaging versus old infarct. Further evaluation with MRI can be performed as clinically warranted. Moderate chronic bilateral sinus mucosal disease. Patient states had TIA in 1998. f/u official read in AM. will not be ordering MRI at this time. f/u clinically 6AM: still persistently complaining of 8/10 low back pain. tried tylenol and ice pack w/o relief. no confusion per nursing; will order one time dose of flexeril 5mg.
[2022-10-10] MEDS: LIDOCAINE 5% 1 PATCH TD SCH ×2 (02:39→21:32)
[2022-10-10] MEDS ORDERED: ACETAMINOPHEN 500 MG TAB PO PRN (05:21)
[2022-10-10] MEDS ORDERED: CYCLOBENZAPRINE HCL 5 MG TAB PO ONE (06:25)
[2022-10-10 07:35] LABS: Albumin Globulin Ratio 1.2 (0.9-2); Albumin Level 3.7 gm/dl (3.4-5.0); BUN Creatinine Ratio 30.2 (10-20); Calcium 9.3 mg/dl (8.5-10.1); Creatinine Clr Calc Pharmacy 90.9 ml/min; Est GFR (African American) 95.8 ml/min; Est GFR (Non-African American) 82.6 ml/min; Globulin 3.1 gm/dl (2.5-4.0); Potassium 4.2 mmol/L (3.5-5.1); Total Protein 6.8 gm/dl (6.0-8.3)
--- NOTE | 2022-10-10 07:47 | CT Scan Report ---
CT OF THE HEAD WITHOUT CONTRAST CLINICAL HISTORY: unwitnessed fall vs syncopal episode. on plavix COMPARISON STUDY: No previous studies for comparison. CT DOSE: 1228.53 mGy.cm TECHNIQUE: Helical axial images of the head were obtained without IV contrast. Automated exposure con trol was utilized for the study. A dose lowering technique was utilized adhering to the principles o f ALARA. FINDINGS: This exam is mildly compromised by motion artifact. No acute intracranial hemorrhage, midli ne shift or mass effect is present. 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 Ventricular system is unremarkable. Basal cisterns are patent. There are no extra-axial collection s. No acute calvarial fracture is present. Right maxillary sinus mucosal thickening with air-fluid [place] is noted. Right mastoid air cells are largely opacified. IMPRESSION: 1. No acute intracranial findings. Exam mildly compromised by motion artifact. 2. No acute calvarial fracture. 3. 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 4. Right maxillary sinus mucosal thickening with air-fluid level. 5. Partially opacified right mastoid air cells. ACT 112: Negative or not required by law. Electronically signed by: Edilberto Monique M.D. 10/10/2022 7:45 AM
[2022-10-10] MEDS: INSULIN ASPART PER UNIT SC SCH ×4 (08:33→21:29)
--- NOTE | 2022-10-10 08:48 | Hospitalist Progress Note ---
Date of Service October 10, 2022 Assessment & Plan (1) COPD exacerbation: Plan: Smoking history for several decades, had previously quit and now smokes about 2 cigarettes a day. Presented with shortness of breath over the last several months that acutely worsened over the last week causing him to use his albuterol inhaler much more frequently. Chest x-ray 10/07 without any acute chest disease noted. Patient started on methylprednisolone 40 mg twice daily; de-escalated and will continue prednisone 40 mg daily, to complete on 10/14. Azithromycin x3 days to complete on 10/10. Continue Trelegy Ellipta inhaler 1 puff daily. Albuterol nebs every 6 hours as needed for shortness of breath/wheezing. Smoking cessation encouraged. Mucinex 1200 mg twice daily. (2) Heart failure with mid-range ejection fraction: Plan: Patient with extensive cardiac history of multivessel CAD status post CABG x5 in 2012. With complaints of shortness of breath and new leg swelling in bilateral lower extremities. Ultrasound of bilateral lower extremities without evidence of DVT. BNP elevated to 1100. Echocardiogram performed this admission shows significant decline in systolic function as well as diastolic dysfunction, with new wall motion abnormalities (LVEF 30-35%). Continue carvedilol 6.25 mg twice daily. Lisinopril held given hypotension this morning. Cardiology consulted and appreciate recommendations. Will need cardiology follow-up on discharge, with plan for repeat echocardiogram once his fluid status is compensated. Furosemide 40 mg IV given hypervolemia on exam with likely diuretic prescription on discharge. Continue with monitoring of renal function and electrolytes. Continue to monitor intake and output with daily standing weights. Will need referral for heart failure program. (3) Coronary artery disease: Plan: See above Continue aspirin, Plavix, beta-debbi, statin. (4) S/P CABG x 5: Plan: See above (5) DM2 (diabetes mellitus, type 2): Plan: A1c 5.6% on admission. Continue home Lantus 2025 units daily with sliding scale coverage as needed. Parameters adjusted given hypoglycemia this morning. (6) HTN (hypertension): Plan: Continue carvedilol; lisinopril held given hypotension this morning. (7) Hyperlipidemia: Plan: Continue statin. (8) Pruritic rash: Plan: Patient reports using a new shampoo a few days ago, no other new exposures. Patient is receiving steroids for COPD exacerbation, and rash is since resolved. (9) Peripheral neuropathy: Plan: Continue home gabapentin 600 mg twice daily. (10) BPH (benign prostatic hyperplasia): Plan: Continue tamsulosin daily. (11) Back pain: Plan: After fall earlier this morning. CT head without evidence of bleeding. Did receive Flexeril x1 for back pain overnight, will defer this in favor of Tylenol, lidocaine patches, Voltaren gel. Tramadol ordered as needed for breakthrough or severe pain, however will only continue this through this evening. Plan Full code Heart healthy, low-sodium, diabetic diet Lovenox 40 mg daily for DVT prophylaxis Med/Surg Admission and Anticipated Discharge Date Admission Date: October 07, 2022 Subjective Overnight patient had fall, hit his head, and also has had back pain in his low back following. Was given 1 dose of Flexeril with some improvement in his symptoms after CT of his head was performed which did not show any acute pathology such as bleeding. Patient also had a blood sugar of 68 this morning, pharmacy aware and making adjustments to his insulin regimen. Lastly, he did have blood pressure in the 90s systolic this morning. On my interview with the patient, he does not have any complaints at that time other than some mild low back pain. He asks for an ice pack. He reports that his breathing is better as is the swelling in his bilateral lower extremities, though he is not back to his baseline. He does not endorse any chest or abdominal pain, nausea, vomiting, diarrhea overnight. Review of Systems Review of Systems: All systems reviewed & are unremarkable except as noted in Subjective Physical Exam Constitutional: WD/WN, vitals as above Respiratory: Normal respiratory effort, lungs clear to auscultation Cardiovascular: Heart regular rate and rhythm with 3/6 systolic murmur at apex 2+ edema up to the mid marie No JVD Gastrointestinal (Abdomen): normal bowel sounds, soft, nontender, no he patosplenomegaly Skin: No rashes Psychiatric: A+Ox3, euthymic affect Results & Data Results & Data ([facility]) Vital Signs (Past 12 Hours) Vital Signs Temp Pulse Pulse Pulse Resp BP BP 10/10/22 07:40 36.4 C L 87 20 91/63 L 10/10/22 02:45 79 10/10/22 02:48 10/10/22 02:48 36.3 C L 85 20 117/84 10/10/22 01:40 103/70 10/10/22 01:38 82 86/49 L 10/10/22 00:02 83 16 103/73 10/09/22 23:29 10/09/22 22:38 105/71 10/09/22 21:50 36.4 C L 84 16 98/66 L Pulse Ox O2 Del Method 10/10/22 07:40 90 Room Air 10/10/22 02:45 10/10/22 02:48 Room Air 10/10/22 02:48 94 Room Air 10/10/22 01:40 10/10/22 01:38 94 Room Air 10/10/22 00:02 94 Room Air 10/09/22 23:29 Room Air 10/09/22 22:38 Room Air 10/09/22 21:50 93 Room Air PG Care Time/CCT Total # of Minutes Spent Total Time Spent with Patient: Total time spent is greater than 50% in coordination of care (as documented) at patient's floor/unit and/or counseling patient: Coding Level of Care Code 39152 Subseq Hosp Care Lvl 3 Diagnoses COPD exacerbation J44.1 Heart failure with mid-range ejection fraction I50.22 Coronary artery disease I25.10 S/P CABG x 5 Z95.1 DM2 (diabetes mellitus, type 2) E11.9 HTN (hypertension) I10 Hyperlipidemia E78.5 Pruritic rash L28.2 Peripheral neuropathy G62.9 BPH (benign prostatic hyperplasia) N40.0 Back pain M54.9
[2022-10-10] MEDS: carvediloL 6.25 MG TAB PO SCH ×2 (09:38→17:50)
[2022-10-10] MEDS: DICLOFENAC SOD 1% GEL 100 GM TUBE EXT SCH ×3 (09:39→23:47)
[2022-10-10] MEDS: ASPIRIN 81 MG ECTAB PO SCH (09:43)
[2022-10-10] MEDS: TAMSULOSIN HCL 0.4 MG CAP PO SCH (09:43)
[2022-10-10] MEDS: CLOPIDOGREL BISULFATE 75 MG TAB PO SCH (09:43)
[2022-10-10] MEDS: guaiFENesin 600 MG TABCR PO SCH ×2 (09:43→21:34)
[2022-10-10] MEDS: AZITHROMYCIN 250 MG TAB PO SCH (09:43)
[2022-10-10] MEDS: predniSONE 20 MG TAB PO SCH (09:43)
[2022-10-10] MEDS: GABAPENTIN 600 MG TAB PO SCH ×2 (09:43→21:35)
[2022-10-10] MEDS: FEXOFENADINE HCL 180 MG TAB PO SCH (09:43)
[2022-10-10] MEDS: FUROSEMIDE 40 MG/4 ML VIAL IV SCH (09:44)
[2022-10-10] MEDS: ENOXAPARIN INJ 40 MG/0.4 ML SYR SQ SCH (09:44)
[2022-10-10] MEDS: FLUTICASONE/UMECLIDIN/VILANTER 100-62.5-25 INH SCH (09:46)
[2022-10-10] MEDS: ACETAMINOPHEN 500 MG TAB PO SCH ×3 (09:58→21:34)
[2022-10-10] MEDS ORDERED: traMADol HCL 50 MG TABLET PO PRN (11:05)
[2022-10-10 11:41] LABS: Base Excess VBG 3.2 mEq/L; HCO3 VBG 29 mmol/L; Oxygen Saturation VBG 92.3 %; PCO2 VBG 45 mmHg (38-50); PO2 VBG 61 mmHg; pH VBG 7.41 (7.36-7.41)
[2022-10-10] MEDS: LANTUS PER UNIT CHARGE SQ SCH (21:30)
[2022-10-10] MEDS: PRAVASTATIN SOD 40 MG TAB PO SCH (21:34)
[2022-10-11] MEDS: DICLOFENAC SOD 1% GEL 100 GM TUBE EXT SCH ×3 (06:22→20:56)
[2022-10-11] MEDS: ACETAMINOPHEN 500 MG TAB PO SCH ×3 (06:22→20:56)
[2022-10-11] MEDS: CLOPIDOGREL BISULFATE 75 MG TAB PO SCH (08:07)
[2022-10-11] MEDS: ASPIRIN 81 MG ECTAB PO SCH (08:07)
[2022-10-11] MEDS: FEXOFENADINE HCL 180 MG TAB PO SCH (08:07)
[2022-10-11] MEDS: carvediloL 6.25 MG TAB PO SCH ×2 (08:07→16:47)
[2022-10-11] MEDS: ENOXAPARIN INJ 40 MG/0.4 ML SYR SQ SCH (08:07)
[2022-10-11] MEDS: TAMSULOSIN HCL 0.4 MG CAP PO SCH (08:07)
[2022-10-11] MEDS: guaiFENesin 600 MG TABCR PO SCH ×2 (08:07→20:57)
[2022-10-11] MEDS: GABAPENTIN 600 MG TAB PO SCH ×2 (08:07→20:58)
[2022-10-11] MEDS: predniSONE 20 MG TAB PO SCH (08:07)
[2022-10-11] MEDS: FLUTICASONE/UMECLIDIN/VILANTER 100-62.5-25 INH SCH (08:08)
[2022-10-11] MEDS: FUROSEMIDE 40 MG/4 ML VIAL IV SCH (08:19)
[2022-10-11] MEDS: INSULIN ASPART PER UNIT SC SCH ×4 (08:19→20:55)
[2022-10-11 09:15] LABS: BUN Creatinine Ratio 30.2 (10-20); Creatinine Clr Calc Pharmacy 100.4 ml/min; Est GFR (African American) 105.5 ml/min; Potassium 4.1 mmol/L (3.5-5.1)
--- NOTE | 2022-10-11 13:24 | Pharmacy Report ---
Pharmacy Glycemic Short Note 2 - Date of Service October 11, 2022 - Glycemic Short BSG Results (Last 24 hours): 10/10/22 10/10/22 10/11/22 16:38 20:28 07:53 Glucose POC Glucose 138 H 168 H 99 10/11/22 10/11/22 08:20 11:34 Glucose 94 POC Glucose 95 OUTPATIENT ANTIDIABETIC REGIMEN: * Lantus 26 units HS * Glimepiride 4 mg PO daily * Metformin 1000 mg PO BIDM HbA1c 5.6% 10/08 ASSESSMENT: 10/11/22 * BSGs have been very tightly controlled over past 48 hours * Evening of 10/09-10/10, patient had a fall after losing balance (BSG 80 mg/dL at that time) * Will prioritize limiting hypoglycemia at this time * Basal insulin reduced by ~50% yesterday and Novolog loosened substantially * Continues on prednisone 40 mg PO daily 10/09/22 * BSGs well-controlled yesterday, ranging 109-163 mg/dL * Received 26 units of basal and 16 units of prandial/correctional bolus * Steroids changed from IV Solu-medrol to once prednisone 40 mg PO daily * Will allow for decreased dose of Lantus this evening based on BSG, no other changes anticipated to current insulin regimen today 10/08/22: * Patient admitted with COPD exacerbation, currently on methylprednisolone IV 40 mg BID * A1c indicates good outpatient control (if not experiencing frequent hypoglycemia) * Fasting 141 mg/dL this AM, will continue home lantus dosing for now- monitor for trend with steroid use * Novolog parameters weight based stress of 2- continue for now, tighten carb ratio if BSGs trend up with steroids PLAN FOR INPATIENT GLYCEMIC CONTROL: * Hold outpatient oral diabetes medications * Basal insulin * Lantus 5-10 units SC HS * Bolus insulin * NovoLog per scale ACHS or Q6hrs while NPO * Goal Range: Low 110 mg/dL - High 140 mg/dL * Correction Factor: 35 mg/dL/unit * Nutritional / Prandial insulin per carb ratio of 1 unit per 15 grams CHO consumed
--- NOTE | 2022-10-11 13:27 | Hospitalist Progress Note ---
Date of Service October 11, 2022 Assessment & Plan (1) COPD exacerbation: Plan: Smoking history for several decades, had previously quit and now smokes about 2 cigarettes a day. Presented with shortness of breath over the last several months that acutely worsened over the last week causing him to use his albuterol inhaler much more frequently. Chest x-ray 10/07 without any acute chest disease noted. Patient started on methylprednisolone 40 mg twice daily; de-escalated and will continue prednisone 40 mg daily, to complete on 10/14. Azithromycin x3 days completed on 10/10. Continue Trelegy Ellipta inhaler 1 puff daily. Albuterol nebs every 6 hours as needed for shortness of breath/wheezing. Smoking cessation encouraged. Mucinex 1200 mg twice daily. (2) Heart failure with mid-range ejection fraction: Plan: Patient with extensive cardiac history of multivessel CAD status post CABG x5 in 2012. With complaints of shortness of breath and new leg swelling in bilateral lower extremities. Ultrasound of bilateral lower extremities without evidence of DVT. BNP elevated to 1100. Echocardiogram performed this admission shows significant decline in systolic function as well as diastolic dysfunction, with new wall motion abnormalities (LVEF 30-35%). Continue carvedilol 6.25 mg twice daily. Lisinopril held given hypotension on 10/10. Cardiology consulted and appreciate recommendations. Will need cardiology follow-up on discharge, with plan for repeat echocardiogram once his fluid status is compensated. Continue furosemide 40 mg IV daily with monitoring of renal function and electrolytes. Have not increased diuretics to twice daily given low normal BP and hypotension yesterday. Continue to monitor intake and output with daily standing weights. Referral for heart failure program performed. (3) Coronary artery disease: Plan: See above Continue aspirin, Plavix, beta-debbi, statin. (4) S/P CABG x 5: Plan: See above (5) DM2 (diabetes mellitus, type 2): Plan: A1c 5.6% on admission. If BSG 140 or below give 5 units basal, if greater than 140 give 10 units basal, with sliding scale coverage. (6) HTN (hypertension): Plan: Continue carvedilol; lisinopril held given hypotension. (7) Hyperlipidemia: Plan: Continue statin. (8) Pruritic rash: Plan: Patient reports using a new shampoo a few days ago, no other new exposures. Patient is receiving steroids for COPD exacerbation, and rash is since resolved. (9) Peripheral neuropathy: Plan: Continue home gabapentin 600 mg twice daily. (10) BPH (benign prostatic hyperplasia): Plan: Continue tamsulosin daily. (11) Back pain: Plan: After fall earlier this morning. CT head without evidence of bleeding. Did receive Flexeril x1 for back pain on 10/10, will defer this in favor of Tylenol, lidocaine patches, Voltaren gel. Plan Full code Heart healthy, low-sodium, diabetic diet Lovenox 40 mg daily for DVT prophylaxis Med/Surg Admission and Anticipated Discharge Date Admission Date: October 11, 2022 Subjective Doing well today, saturating to 98% on 1-2 [place] [address] systolic overnight. Still complains of low back pain, alleviated to some extent with as needed medications as ordered. Did go for a walk and was up to chair without issues. Reports improvement on his bilateral lower extremity swelling with the compression stockings. Review of Systems Review of Systems: All systems reviewed & are unremarkable except as noted in Subjective Physical Exam Constitutional: WD/WN, vitals as above Respiratory: Normal respiratory effort, lungs clear to auscultation Cardiovascular: Heart regular rate and rhythm with 3/6 systolic murmur at apex 1+ edema up to the mid marie with stockings in place No JVD Gastrointestinal (Abdomen): normal bowel sounds, soft, nontender, no hepatosplenomegaly Skin: No rashes Psychiatric: A+Ox3, euthymic affect Results & Data Results & Data ([facility]) Vital Signs (Past 12 Hours) Vital Signs Temp Pulse Pulse Resp BP Pulse Ox O2 Del Method 10/11/22 10:51 36.5 C 85 22 101/68 100 Nasal Cannula 10/11/22 08:00 Nasal Cannula 10/11/22 07:37 36.3 C L 83 22 104/71 98 Nasal Cannula 10/11/22 07:11 67 10/11/22 03:28 36.2 C L 85 16 104/73 93 Room Air O2 Flow Rate 10/11/22 10:51 2 10/11/22 08:00 2 10/11/22 07:37 2 10/11/22 07:11 10/11/22 03:28 PG Care Time/CCT Total # of Minutes Spent Total Time Spent with Patient: Total time spent is greater than 50% in coordination of care (as documented) at patient's floor/unit and/or counseling patient: Coding Level of Care Code 55789 Subseq Hosp Care Lvl 3 Diagnoses COPD exacerbation J44.1 Heart failure with mid-range ejection fraction I50.22 Coronary artery disease I25.10 S/P CABG x 5 Z95.1 DM2 (diabetes mellitus, type 2) E11.9 HTN (hypertension) I10 Hyperlipidemia E78.5 Pruritic rash L28.2 Peripheral neuropathy G62.9 BPH (benign prostatic hyperplasia) N40.0 Back pain M54.9
[2022-10-11] MEDS: LANTUS PER UNIT CHARGE SQ SCH (20:55)
[2022-10-11] MEDS: LIDOCAINE 5% 1 PATCH TD SCH (20:55)
[2022-10-11] MEDS: PRAVASTATIN SOD 40 MG TAB PO SCH (20:57)
[2022-10-12] MEDS: ACETAMINOPHEN 500 MG TAB PO SCH ×3 (05:24→21:37)
[2022-10-12] MEDS: DICLOFENAC SOD 1% GEL 100 GM TUBE EXT SCH ×3 (05:25→21:37)
[2022-10-12 08:32] LABS: BUN Creatinine Ratio 30.4 (10-20); Calcium 8.7 mg/dl (8.5-10.1); Creatinine Clr Calc Pharmacy 109.8 ml/min; Est GFR (African American) 109.2 ml/min; Est GFR (Non-African American) 94.2 ml/min
[2022-10-12] MEDS: FLUTICASONE/UMECLIDIN/VILANTER 100-62.5-25 INH SCH (08:53)
[2022-10-12] MEDS: guaiFENesin 600 MG TABCR PO SCH ×2 (08:54→21:37)
[2022-10-12] MEDS: GABAPENTIN 600 MG TAB PO SCH ×2 (08:54→21:37)
[2022-10-12] MEDS: ASPIRIN 81 MG ECTAB PO SCH (08:54)
[2022-10-12] MEDS: carvediloL 6.25 MG TAB PO SCH ×2 (08:54→16:27)
[2022-10-12] MEDS: ENOXAPARIN INJ 40 MG/0.4 ML SYR SQ SCH (08:54)
[2022-10-12] MEDS: predniSONE 20 MG TAB PO SCH (08:54)
[2022-10-12] MEDS: FEXOFENADINE HCL 180 MG TAB PO SCH (08:55)
[2022-10-12] MEDS: TAMSULOSIN HCL 0.4 MG CAP PO SCH (08:55)
[2022-10-12] MEDS: CLOPIDOGREL BISULFATE 75 MG TAB PO SCH (08:55)
[2022-10-12] MEDS: INSULIN ASPART PER UNIT SC SCH ×4 (09:07→21:30)
[2022-10-12] MEDS: FUROSEMIDE 40 MG/4 ML VIAL IV SCH (09:07)
--- NOTE | 2022-10-12 09:47 | Cardiology Progress Note ---
Date of Service October 12, 2022 Assessment & Plan (1) Heart failure with mid-range ejection fraction: Plan: -continues on intravenous Lasix. -suspect decompensation related to dietary indiscretion with salt. -daily weights and sliding-scale diuretics as an outpatient. -Sonia Megan will follow the patient in the CHF program. (2) Coronary artery disease: Plan: -s/p CABG x5, 2012 -quiescent on current medications. (3) Moderate aortic stenosis: Plan: -valve area calculated 1.4 cm2 on current echocardiogram. (4) Severe mitral regurgitation: Plan: -will recheck an echocardiogram once the patient is compensated. Admission and Anticipated Discharge Date Admission Date: October 11, 2022 Subjective The patient is resting comfortably at the bedside without complaints of chest pain. His lower extremity edema has improved dramatically. Physical Exam Physical Exam: In general this is a well-developed well-nourished whi te male in no acut e distress. HEENT exam is negative. Neck is supple m ildly delayed pelaez tid upstrokes. Th ere are no carotid bruits. Well-hea led scar seen on t he left neck. No jugular venous dis tension. There is no thyromegaly. Cardiovascular exa m reveals a regula r rhythm with dist ant heart sounds. A 2/6 basal systo lic ejection murmu rs noted. Chest r eveals well-healed midline scar. Fabi ngs are clear with out rales, rhonchi , or wheezes. Abd omen is soft and n ontender without b ruits. Extremitie s reveal intact ra dial artery pulses bilaterally. The re is trace pretib ial edema. Results & Data ([facility]) Vital Signs (Past 12 Hours) Vital Signs Temp Pulse Pulse Resp BP Pulse Ox O2 Del Method 10/12/22 07:40 36.3 C L 87 18 115/80 98 Nasal Cannula 10/12/22 05:00 36.8 C 83 18 113/80 92 Nasal Cannula 10/11/22 22:20 83 10/11/22 22:12 36.5 C 84 18 106/76 94 Nasal Cannula O2 Flow Rate 10/12/22 07:40 2 10/12/22 05:00 1 10/11/22 22:20 10/11/22 22:12 2 Diagnostic Findings ekg monitor is benign. PG Care Time/CCT Total # of Minutes Spent Total Time Spent with Patient: Total time spent is greater than 50% in coordination of care (as documented) at patient's floor/unit and/or counseling patient: Coding Level of Care Code 94140 Subseq Hosp Care Lvl 3 Diagnoses Heart failure with mid-range ejection fraction I50.22 Coronary artery disease I25.10 Moderate aortic stenosis I35.0 Severe mitral regurgitation I34.0
[2022-10-12 09:55] LABS: Basophils # (auto) 0.01 K/uL (0-0.2); Basophils % (auto) 0.1 %; Eosinophils # (auto) 0.11 K/uL (0-0.50); Eosinophils % (auto) 1.4 %; Hematocrit (blood only) 43.1 % (40.1-51.0); Hemoglobin 13.9 g/dl (14.0-18.0); Immature Granulocytes # (auto) 0.02 K/uL (0.00-0.02); Immature Granulocytes % (auto) 0.3 %; Lymphocytes # (auto) 2.49 K/uL (1.2-3.4); Lymphocytes % (auto) 31.6 %; Mean Corpuscular Hgb Conc 32.3 g/dL (32.0-36.0); Mean Platelet Volume 11.9 fL (9.4-12.4); Monocytes # (auto) 0.73 K/uL (0.24-0.82); Monocytes % (auto) 9.3 %; Neutrophils # (auto) 4.51 K/uL (1.4-6.5); Neutrophils % (auto) 57.3 %; Platelet Count 116 K/uL (130-400); RDW Coefficient of Variation 14.1 % (11.5-14.5); RDW Standard Deviation 46.9 fL (36.4-46.3); Red Blood Count 4.79 M/uL (4.63-6.08); White Blood Count 7.87 K/ul (4.8-10.8)
--- NOTE | 2022-10-12 17:26 | Hospitalist Progress Note ---
Date of Service October 12, 2022 Assessment & Plan (1) Heart failure with mid-range ejection fraction: Plan: Acute combined systolic and diastolic CHF Patient with extensive cardiac history of multivessel CAD status post CABG x5 in 2012. With complaints of shortness of breath and new leg swelling in bilateral lower extremities. Ultrasound of bilateral lower extremities without evidence of DVT. BNP elevated to 1100. Echocardiogram performed this admission shows significant decline in systolic function as well as diastolic dysfunction, with new wall motion abnormalities (LVEF 30-35%). Slowly improving with diuresis, weight is down 3 kg since admission. Continues with need for supplemental O2 and peripheral edema Appreciate cardiology consultation -Continue carvedilol 6.25 mg twice daily. -Lisinopril held given hypotension on 10/10. -Continue furosemide 40 Mg IV once daily but will give an extra 20 Mg IV x1 on the evening of 10/12 -Continue diuresis until BUN/creatinine start to increase -Will need cardiology follow-up on discharge, with plan for repeat echocardiogram once his fluid status is compensated. -Continue strict I's and O's, daily weights, low-sodium diet, and fluid restrict to 1500 mL/day -Referral for heart failure program placed -Continue WESTLEY marina (2) COPD exacerbation: Plan: Smoking history for several decades, had previously quit and now smokes about 2 cigarettes a day. Presented with shortness of breath over the last several months that acutely worsened over the last week causing him to use his albuterol inhaler much more frequently. Chest x-ray 10/07 without any acute chest disease noted. Patient started on methylprednisolone 40 mg twice daily; de-escalated and will continue prednisone 40 mg daily, to complete on 10/14. Azithromycin x3 days completed on 10/10. Continue Trelegy Ellipta inhaler 1 puff daily. Albuterol nebs every 6 hours as needed for shortness of breath/wheezing. Smoking cessation encouraged. Mucinex 1200 mg twice daily. (3) Coronary artery disease: Plan: See above Continue aspirin, Plavix, beta-debbi, statin. (4) S/P CABG x 5: Plan: See above (5) DM2 (diabetes mellitus, type 2): Plan: A1c 5.6% on admission. If BSG 140 or below give 5 units basal, if greater than 140 give 10 units basal, with sliding scale coverage. (6) HTN (hypertension): Plan: Continue carvedilol; lisinopril held given hypotension. (7) Hyperlipidemia: Plan: Continue statin. (8) Pruritic rash: Plan: Patient reports using a new shampoo a few days prior to admission, no other new exposures. Patient is receiving steroids for COPD exacerbation, and rash is since resolved. (9) Peripheral neuropathy: Plan: Continue home gabapentin 600 mg twice daily. (10) BPH (benign prostatic hyperplasia): Plan: Continue tamsulosin daily. No acute issues (11) Back pain: Plan: After fall overnight on 10/10 CT head without evidence of bleeding. Did receive Flexeril x1 for back pain on 10/10, will defer this in favor of Tylenol, lidocaine patches, Voltaren gel. Fall precautions Plan Full code Lovenox 40 mg daily for DVT prophylaxis Disposition-continued stay on medical floor with telemetry, continue diuresis but likely discharged home in the next 1 to 2 days Admission and Anticipated Discharge Date Admission Date: October 11, 2022 Subjective Patient reports feeling better but says he would feel even better if he were home. Has not moved his bowels since admission. Still has some leg swelling. He took his oxygen off to eat his dinner but is still on 2 L. Telemetry with normal sinus rhythm with rates in the 80s Review of Systems Review of Systems: All systems reviewed & are unremarkable except as noted in HPI & below Physical Exam Constitutional: WD/WN, vitals as above Eyes: + anicteric sclerae Neck: trachea midline, no thyromegaly Respiratory: normal respiratory effort Auscultation: + diminished lung sounds (Throughout); no crackles, no rhonchi and no wheezes Cardiovascular: Rate/Rhythm: regular rate and regular rhythm Heart Sounds: + murmur (2/6 LAURENT at RUSB) Extremities: + edema (2+ pitting edema of the legs to the knees bilaterally) Chest (Breasts): Chest: normal inspection of chest Gastrointestinal (Abdomen): normal bowel sounds, soft, nontender, no hepatosplenomegaly Musculoskeletal: Extremities: extremities normal to inspection; no cyanosis and no clubbing Skin: no rashes, warm and dry Neurologic: moves all extremities and awake; no focal motor deficits Psychiatric: A+Ox3, euthymic affect Results & Data Results & Data ([facility]) Vital Signs (Past 12 Hours) Vital Signs Temp Pulse Pulse Resp BP Pulse Ox O2 Del Method 11/21/22 14:00 94 H 10/12/22 14:54 36.4 C L 86 20 110/75 96 Nasal Cannula 10/12/22 07:02 82 10/12/22 10:48 36.7 C 82 20 101/69 99 Nasal Cannula 10/12/22 08:00 Nasal Cannula 10/12/22 07:40 36.3 C L 87 18 115/80 98 Nasal Cannula O2 Flow Rate 10/12/22 14:00 10/12/22 14:54 2 10/12/22 07:02 10/12/22 10:48 2 10/12/22 08:00 1 10/12/22 07:40 2 Laboratory Results 10/12/22 10/12/22 10/12/22 Range/Units 16:29 11:39 07:46 WBC (4.8-10.8) K/ul RBC (4.63-6.08) M/uL Hgb (14.0-18.0) g/dl Hct (40.1-51.0) % MCV (80.0-100.0) fL MCH (25.0-34.0) pg MCHC (32.0-36.0) g/dL RDW Std Deviation (36.4-46.3) fL RDW Coeff of Epifanio (11.5-14.5) % Plt Count (130-400) K/uL MPV (9.4-12.4) fL Immature Gran % (Auto) % Neut % (Auto) % Lymph % (Auto) % Titus % (Auto) % Eos % (Auto) % Baso % (Auto) % Neut # (Auto) (1.4-6.5) K/uL Lymph # (Auto) (1.2-3.4) K/uL Titus # (Auto) (0.24-0.82) K/uL Eos # (Auto) (0-0.50) K/uL Baso # (Auto) (0-0.2) K/uL Immature Gran # (Auto) (0.00-0.02) K/uL Sodium (136-145) mmol/L Potassium (3.5-5.1) mmol/L Chloride (98-107) mmol/L Carbon Dioxide (21-32) mmol/L Anion Gap (3-11) BUN (6-23) mg/dl Creatinine (0.6-1.4) mg/dl Est Cr Clr Drug Dosing ml/min Est GFR ( Amer) ml/min Est GFR (Non-Af Amer) ml/min BUN/Creatinine Ratio (10-20) Glucose (70-99(Fasting)) mg/dl POC Glucose 245 H 134 H 99 (70-99) mg/dl Calcium (8.5-10.1) mg/dl 10/12/22 10/12/22 10/11/22 Range/Units 07:44 07:37 20:17 WBC 7.87 (4.8-10.8) K/ul RBC 4.79 (4.63-6.08) M/uL Hgb 13.9 L (14.0-18.0) g/dl Hct 43.1 (40.1-51.0) % MCV 90.0 (80.0-100.0) fL MCH 29.0 (25.0-34.0) pg MCHC 32.3 (32.0-36.0) g/dL RDW Std Deviation 46.9 H (36.4-46.3) fL RDW Coeff of Epifanio 14.1 (11.5-14.5) % Plt Count 116 L (130-400) K/uL MPV 11.9 (9.4-12.4) fL Immature Gran % (Auto) 0.3 % Neut % (Auto) 57.3 % Lymph % (Auto) 31.6 % Titus % (Auto) 9.3 % Eos % (Auto) 1.4 % Baso % (Auto) 0.1 % Neut # (Auto) 4.51 (1.4-6.5) K/uL Lymph # (Auto) 2.49 (1.2-3.4) K/uL Titus # (Auto) 0.73 (0.24-0.82) K/uL Eos # (Auto) 0.11 (0-0.50) K/uL Baso # (Auto) 0.01 (0-0.2) K/uL Immature Gran # (Auto) 0.02 (0.00-0.02) K/uL Sodium 138 (136-145) mmol/L Potassium 4.0 (3.5-5.1) mmol/L Chloride 101 (98-107) mmol/L Carbon Dioxide 32 (21-32) mmol/L Anion Gap 5 (3-11) BUN 24 H (6-23) mg/dl Creatinine 0.79 (0.6-1.4) mg/dl Est Cr Clr Drug Dosing 109.8 ml/min Est GFR ( Amer) 109.2 ml/min Est GFR (Non-Af Amer) 94.2 ml/min BUN/Creatinine Ratio 30.4 H (10-20) Glucose 92 (70-99(Fasting)) mg/dl POC Glucose 164 H (70-99) mg/dl Calcium 8.7 (8.5-10.1) mg/dl PG Care Time/CCT Total # of Minutes Spent Total Time Spent with Patient: Total time spent is greater than 50% in coordination of care (as documented) at patient's floor/unit and/or counseling patient: Coding Level of Care Code 56437 Subseq Hosp Care Lvl 2 Diagnoses Heart failure with mid-range ejection fraction I50.22 COPD exacerbation J44.1 Coronary artery disease I25.10 S/P CABG x 5 Z95.1 DM2 (diabetes mellitus, type 2) E11.9 HTN (hypertension) I10 Hyperlipidemia E78.5 Pruritic rash L28.2 Peripheral neuropathy G62.9 BPH (benign prostatic hyperplasia) N40.0 Back pain M54.9
[2022-10-12] MEDS ORDERED: FUROSEMIDE INJ 20 MG/2 ML VIAL IV ONE (17:27)
[2022-10-12] MEDS: LANTUS PER UNIT CHARGE SQ SCH (21:30)
[2022-10-12] MEDS: PRAVASTATIN SOD 40 MG TAB PO SCH (21:37)
[2022-10-12] MEDS: LIDOCAINE 5% 1 PATCH TD SCH (21:41)
[2022-10-13] MEDS: BENZONATATE 100 MG CAPSULE PO PRN ×2 (01:56→21:47)
[2022-10-13] MEDS: DICLOFENAC SOD 1% GEL 100 GM TUBE EXT SCH ×3 (05:57→21:51)
[2022-10-13] MEDS: ACETAMINOPHEN 500 MG TAB PO SCH ×3 (05:57→21:49)
[2022-10-13 07:12] LABS: Hematocrit (blood only) 43.2 % (40.1-51.0); Mean Corpuscular Hemoglobin 28.7 pg (25.0-34.0); Mean Corpuscular Hgb Conc 32.4 g/dL (32.0-36.0); Mean Corpuscular Volume 88.5 fL (80.0-100.0); Platelet Count 118 K/uL (130-400); RDW Coefficient of Variation 13.8 % (11.5-14.5); RDW Standard Deviation 44.5 fL (36.4-46.3); Red Blood Count 4.88 M/uL (4.63-6.08); White Blood Count 8.29 K/ul (4.8-10.8)
[2022-10-13 07:31] LABS: BUN Creatinine Ratio 33.3 (10-20); Calcium 8.6 mg/dl (8.5-10.1); Creatinine Clr Calc Pharmacy 119.6 ml/min; Est GFR (African American) 113.5 ml/min; Est GFR (Non-African American) 97.9 ml/min
[2022-10-13 07:40] LABS: Basophils # (auto) 0.01 K/uL (0-0.2); Basophils % (auto) 0.1 %; Eosinophils # (auto) 0.11 K/uL (0-0.50); Eosinophils % (auto) 1.3 %; Immature Granulocytes # (auto) 0.02 K/uL (0.00-0.02); Immature Granulocytes % (auto) 0.2 %; Lymphocytes # (auto) 2.42 K/uL (1.2-3.4); Lymphocytes % (auto) 29.2 %; Monocytes # (auto) 0.72 K/uL (0.24-0.82); Monocytes % (auto) 8.7 %; Neutrophils # (auto) 5.01 K/uL (1.4-6.5); Neutrophils % (auto) 60.5 %
[2022-10-13] MEDS: FEXOFENADINE HCL 180 MG TAB PO SCH (07:51)
[2022-10-13] MEDS: ENOXAPARIN INJ 40 MG/0.4 ML SYR SQ SCH (07:51)
[2022-10-13] MEDS: carvediloL 6.25 MG TAB PO SCH ×2 (07:51→17:19)
[2022-10-13] MEDS: FLUTICASONE/UMECLIDIN/VILANTER 100-62.5-25 INH SCH (07:51)
[2022-10-13] MEDS: ASPIRIN 81 MG ECTAB PO SCH (07:52)
[2022-10-13] MEDS: CLOPIDOGREL BISULFATE 75 MG TAB PO SCH (07:52)
[2022-10-13] MEDS: predniSONE 20 MG TAB PO SCH (07:52)
[2022-10-13] MEDS: guaiFENesin 600 MG TABCR PO SCH ×2 (07:52→21:48)
[2022-10-13] MEDS: GABAPENTIN 600 MG TAB PO SCH ×2 (07:53→21:49)
[2022-10-13] MEDS: TAMSULOSIN HCL 0.4 MG CAP PO SCH (07:53)
[2022-10-13] MEDS: FUROSEMIDE 40 MG/4 ML VIAL IV SCH (08:02)
[2022-10-13] MEDS: INSULIN ASPART PER UNIT SC SCH ×4 (09:15→21:25)
--- NOTE | 2022-10-13 12:47 | Cardiology Progress Note ---
Date of Service October 13, 2022 Assessment & Plan (1) Heart failure with mid-range ejection fraction: Plan: -continues on intravenous Lasix. -suspect decompensation related to dietary indiscretion with salt. -daily weights and sliding-scale diuretics as an outpatient. -Sonia Megan will follow the patient in the CHF program. (2) Coronary artery disease: Plan: -s/p CABG x5, 2012 -quiescent on medications. (3) Moderate aortic stenosis: Plan: -valve area calculated 1.4 cm2 on current echocardiogram. (4) Severe mitral regurgitation: Plan: -will recheck an echocardiogram once the patient is compensated. Admission and Anticipated Discharge Date Admission Date: October 11, 2022 Subjective The patient is resting comfortably at the bedside without complaints of chest pain, dyspnea, or palpitations. He is anxious for hospital discharge. Physical Exam Physical Exam: In general this is a well-developed well-nourished whi te male in no acut e distress. HEENT exam is negative. Neck is supple m ildly delayed pelaez tid upstrokes. Th ere are no carotid bruits. Well-hea led scar seen on t he left neck. No jugular venous dis tension. There is no thyromegaly. Cardiovascular exa m reveals a regula r rhythm with dist ant heart sounds. A 2/6 basal systo lic ejection murmu rs noted. Chest r eveals well-healed midline scar. Fabi ngs are clear with out rales, rhonchi , or wheezes. Abd omen is soft and n ontender without b ruits. Extremitie s reveal intact ra dial artery pulses bilaterally. The re is trace pretib ial edema. Results & Data ([facility]) Vital Signs (Past 12 Hours) Vital Signs Temp Pulse Pulse Resp BP Pulse Ox O2 Del Method 10/13/22 11:00 36.4 C L 81 14 114/78 98 Nasal Cannula 10/13/22 07:49 36.4 C L 83 18 106/70 99 Nasal Cannula 10/13/22 06:15 91 H 10/13/22 07:00 Nasal Cannula 10/13/22 03:27 36.5 C 83 18 114/76 99 Nasal Cannula 10/13/22 01:49 82 O2 Flow Rate 10/13/22 11:00 1 10/13/22 07:49 1 10/13/22 06:15 10/13/22 07:00 1 10/13/22 03:27 2 10/13/22 01:49 Diagnostic Findings awake overnight monitor is benign. PG Care Time/CCT Total # of Minutes Spent Total Time Spent with Patient: Total time spent is greater than 50% in coordination of care (as documented) at patient's floor/unit and/or counseling patient: Coding Level of Care Code 34816 Subseq Hosp Care Lvl 3 Diagnoses Heart failure with mid-range ejection fraction I50.22 Coronary artery disease I25.10 Moderate aortic stenosis I35.0 Severe mitral regurgitation I34.0
--- NOTE | 2022-10-13 20:23 | Hospitalist Progress Note ---
Date of Service October 13, 2022 Assessment & Plan (1) Heart failure with mid-range ejection fraction: Plan: Acute combined systolic and diastolic CHF Patient with extensive cardiac history of multivessel CAD status post CABG x5 in 2012. With complaints of shortness of breath and new leg swelling in bilateral lower extremities. Ultrasound of bilateral lower extremities without evidence of DVT. BNP elevated to 1100. Echocardiogram performed this admission shows significant decline in systolic function as well as diastolic dysfunction, with new wall motion abnormalities (LVEF 30-35%). Slowly improving with diuresis, weight is down 3 kg since admission. Continues with need for supplemental O2 and peripheral edema Appreciate cardiology consultation -Continue carvedilol 6.25 mg twice daily. -Lisinopril held given hypotension on 10/10. -Continue furosemide 40 Mg IV once daily but will give an extra 20 Mg IV x1 on the evening of 10/12 -Continue diuresis until BUN/creatinine start to increase -Will need cardiology follow-up on discharge, with plan for repeat echocardiogram once his fluid status is compensated. -Continue strict I's and O's, daily weights, low-sodium diet, and fluid restrict to 1500 mL/day -Referral for heart failure program placed -Continue WESTLEY marina Will continue furosemide on 10/13 as stated above. (2) COPD exacerbation: Plan: Smoking history for several decades, had previously quit and now smokes about 2 cigarettes a day. Presented with shortness of breath over the last several months that acutely worsened over the last week causing him to use his albuterol inhaler much more frequently. Chest x-ray 10/07 without any acute chest disease noted. Patient started on methylprednisolone 40 mg twice daily; de-escalated and will continue prednisone 40 mg daily, to complete on 10/14. Azithromycin x3 days completed on 10/10. Continue Trelegy Ellipta inhaler 1 puff daily. Albuterol nebs every 6 hours as needed for shortness of breath/wheezing. Smoking cessation encouraged. Mucinex 1200 mg twice daily. (3) Coronary artery disease: Plan: See above Continue aspirin, Plavix, beta-debbi, statin. (4) S/P CABG x 5: Plan: See above (5) DM2 (diabetes mellitus, type 2): Plan: A1c 5.6% on admission. If BSG 140 or below give 5 units basal, if greater than 140 give 10 units basal, with sliding scale coverage. (6) HTN (hypertension): Plan: Continue carvedilol; lisinopril held given hypotension. (7) Hyperlipidemia: Plan: Continue statin. (8) Pruritic rash: Plan: Patient reports using a new shampoo a few days prior to admission, no other new exposures. Patient is receiving steroids for COPD exacerbation, and rash is since resolved. (9) Peripheral neuropathy: Plan: Continue home gabapentin 600 mg twice daily. (10) BPH (benign prostatic hyperplasia): Plan: Continue tamsulosin daily. No acute issues (11) Back pain: Plan: After fall overnight on 10/10 CT head without evidence of bleeding. Did receive Flexeril x1 for back pain on 10/10, will defer this in favor of Tylenol, lidocaine patches, Voltaren gel. Fall precautions Plan Full code Lovenox 40 mg daily for DVT prophylaxis Disposition-continued stay on medical floor with telemetry, continue diuresis but likely discharged home in the next 1 to 2 days Admission and Anticipated Discharge Date Admission Date: October 11, 2022 Subjective 67 yo male reports feeling better. He has no new complaints. Review of Systems Review of Systems: All systems reviewed & are unremarkable except as noted in HPI & below Physical Exam Physical Exam: Constitutional: WD/WN, vitals as above Eyes: + anicteric sclerae Neck: trachea midline, no thyromegaly Respiratory: normal respiratory effort Auscultation: + diminished lung sounds (Throughout); no crackles, no rhonchi and no wheezes Cardiovascular: Rate/Rhythm: regular rate and regular rhythm Heart Sounds: + murmur (2/6 LAURENT at RUSB) Extremities: + edema (2+ pitting edema of the legs to the knees bilaterally) Chest (Breasts): Chest: normal inspection of chest Gastrointestinal (Abdomen): normal bowel sounds, soft, nontender, no hepatosplenomegaly Musculoskeletal: Extremities: extremities normal to inspection; no cyanosis and no clubbing Skin: no rashes, warm and dry Neurologic: moves all extremities and awake; no focal motor deficits Psychiatric: A+Ox3, euthymic affect Results & Data Results & Data ([facility]) Vital Signs (Past 12 Hours) Vital Signs Temp Pulse Pulse Resp BP Pulse Ox O2 Del Method 10/13/22 14:18 88 10/13/22 15:47 36.7 C 88 16 109/74 92 Nasal Cannula 10/13/22 15:00 36.6 C 90 20 97/67 L 90 Nasal Cannula 10/13/22 11:00 36.4 C L 81 14 114/78 98 Nasal Cannula O2 Flow Rate 10/13/22 14:18 10/13/22 15:47 1 10/13/22 15:00 1 10/13/22 11:00 1 PG Care Time/CCT Total # of Minutes Spent Total Time Spent with Patient: Total time spent is greater than 50% in coordination of care (as documented) at patient's floor/unit and/or counseling patient: Coding Level of Care Code 94709 Subseq Hosp Care Lvl 2 Diagnoses Heart failure with mid-range ejection fraction I50.22 COPD exacerbation J44.1 Coronary artery disease I25.10 S/P CABG x 5 Z95.1 DM2 (diabetes mellitus, type 2) E11.9 HTN (hypertension) I10 Hyperlipidemia E78.5 Pruritic rash L28.2 Peripheral neuropathy G62.9 BPH (benign prostatic hyperplasia) N40.0 Back pain M54.9
[2022-10-13] MEDS: PRAVASTATIN SOD 40 MG TAB PO SCH (21:50)
[2022-10-13] MEDS: LANTUS PER UNIT CHARGE SQ SCH (21:50)
[2022-10-13] MEDS: LIDOCAINE 5% 1 PATCH TD SCH (21:51)
[2022-10-14] MEDS: ACETAMINOPHEN 500 MG TAB PO SCH (05:54)
[2022-10-14] MEDS: DICLOFENAC SOD 1% GEL 100 GM TUBE EXT SCH (05:54)
[2022-10-14] MEDS: INSULIN ASPART PER UNIT SC SCH (08:08)
[2022-10-14] MEDS: ASPIRIN 81 MG ECTAB PO SCH (08:09)
[2022-10-14] MEDS: GABAPENTIN 600 MG TAB PO SCH (08:09)
[2022-10-14] MEDS: FEXOFENADINE HCL 180 MG TAB PO SCH (08:09)
[2022-10-14] MEDS: guaiFENesin 600 MG TABCR PO SCH (08:10)
[2022-10-14] MEDS: CLOPIDOGREL BISULFATE 75 MG TAB PO SCH (08:10)
[2022-10-14] MEDS: predniSONE 20 MG TAB PO SCH (08:10)
[2022-10-14] MEDS: carvediloL 6.25 MG TAB PO SCH (08:10)
[2022-10-14] MEDS: FLUTICASONE/UMECLIDIN/VILANTER 100-62.5-25 INH SCH (08:11)
[2022-10-14] MEDS: ENOXAPARIN INJ 40 MG/0.4 ML SYR SQ SCH (08:11)
[2022-10-14] MEDS: TAMSULOSIN HCL 0.4 MG CAP PO SCH (08:12)
--- NOTE | 2022-10-14 10:34 | Discharge Summary ---
Date of Service October 14, 2022 Admission HPI Per Admitting Provider Silvano Koehler is a 67 year old male who presents to the ER with shortness of breath. He reports this has been going on for many months and needing his albuterol inhaler on a daily basis but he has been much worse over the last week with associated swelling in both his legs. He reports seeing his primary care physician today and recommended going to the ER due to the severity of his symptoms but he was given a Trelegy Ellipta inhaler to start using. He reports not taking a course of steroids or being on a maintenance inhaler prior to this. Asscoaited non productive cough. No chest pain, nasal congestion, fever, chills, sinus pain. In the ER he was given Solu-medrol and an hour long duoneb which he reports feeling much improved compared to his 20 minute duoneb at home. Given significant respiratory distress and wheezing despite not needing oxygen he was referred to medicine for admission and management of COPD exacerbation. Principal Diagnosis heart failure with mid range ejection fraction Discharge Exam no exam Discharge Data Allergies Allergy/AdvReac Type Severity Reaction Status Date / Time No Known Allergies Allergy Verified 10/14/22 09:32 Consultations 10/07/22 12:58 ED Decision to Admit Stat 10/08/22 12:19 Consult Cardiology Routine 10/08/22 15:05 [facility] CHF Program Referral Routine Ordered Studies 10/08/22 06:29 US venous doppler LE BI Routine 10/10/22 02:[address] [CT head/brain wo con] Urgent Hospital Course (1) Heart failure with mid-range ejection fraction: Acute combined systolic and diastolic CHF Patient with extensive cardiac history of multivessel CAD status post CABG x5 in 2013. With complaints of shortness of breath and new leg swelling in bilateral lower extremities. Ultrasound of bilateral lower extremities without evidence of DVT. BNP elevated to 1100. Echocardiogram performed this admission shows significant decline in systolic function as well as diastolic dysfunction, with new wall motion abnormalities (LVEF 30-35%). Slowly improving with diuresis, weight is down 3 kg since admission. Continues with need for supplemental O2 and peripheral edema Appreciate cardiology consultation -Continue carvedilol 6.25 mg twice daily. -Lisinopril held given hypotension on 10/10. -Continue furosemide 40 Mg IV once daily but will give an extra 20 Mg IV x1 on the evening of 10/12 -Continue diuresis until BUN/creatinine start to increase -Will need cardiology follow-up on discharge, with plan for repeat echocardiogram once his fluid status is compensated. -Continue strict I's and O's, daily weights, low-sodium diet, and fluid restrict to 1500 mL/day -Referral for heart failure program placed -Continue WESTLEY marina Will continue furosemide on 10/13 as stated above. Patient signed out against medical advice on 10/14 (2) COPD exacerbation: Smoking history for several decades, had previously quit and now smokes about 2 cigarettes a day. Presented with shortness of breath over the last several months that acutely worsened over the last week causing him to use his albuterol inhaler much more frequently. Chest x-ray 10/07 without any acute chest disease noted. Patient started on methylprednisolone 40 mg twice daily; de-escalated and will continue prednisone 40 mg daily, to complete on 10/14. Azithromycin x3 days completed on 10/10. Continue Trelegy Ellipta inhaler 1 puff daily. Albuterol nebs every 6 hours as needed for shortness of breath/wheezing. Smoking cessation encouraged. Mucinex 1200 mg twice daily. (3) Coronary artery disease: See above Continue aspirin, Plavix, beta-debbi, statin. (4) S/P CABG x 5: See above (5) DM2 (diabetes mellitus, type 2): A1c 5.6% on admission. If BSG 140 or below give 5 units basal, if greater than 140 give 10 units basal, with sliding scale coverage. (6) HTN (hypertension): Continue carvedilol; lisinopril held given hypotension. (7) Hyperlipidemia: Continue statin. (8) Pruritic rash: Patient reports using a new shampoo a few days prior to admission, no other new exposures. Patient is receiving steroids for COPD exacerbation, and rash is since resolved. (9) Peripheral neuropathy: Continue home gabapentin 600 mg twice daily. (10) BPH (benign prostatic hyperplasia): Continue tamsulosin daily. No acute issues (11) Back pain: After fall overnight on 10/10 CT head without evidence of bleeding. Did receive Flexeril x1 for back pain on 10/10, will defer this in favor of Tylenol, lidocaine patches, Voltaren gel. Fall precautions Plan Full code Lovenox 40 mg daily for DVT prophylaxis Disposition-continued stay on medical floor with telemetry, continue diuresis but likely discharged home in the next 1 to 2 days Total Time Total Time Spent Total Time Spent (In Minutes): 5 Discharge Plan Discharge Items Patient Disposition: Against Medical Advice Reason For Visit: COPD EXACERBATION Activity: Resume your previous activity Non-emergency contact: Primary Care Provider Follow-up/Referrals: Kerry Heller MD [Primary Care Provider] - Sonia Guzman PA-C [Physician Photograph Editor] - 10/19/22 10:30 am Pending Studies at Discharge: No Stand-Alone Forms: My [facility] [email or web address], Smoking Cessation Medications and DC Order Prescriptions: No Action carvedilol 6.25 mg tablet 6.25 mg PO BID Qty: 180 1RF Rx Instructions: must administer with a meal/food tamsulosin 0.4 mg capsule 0.4 mg PO DAILY Qty: 90 2RF glimepiride 2 mg tablet 4 mg PO DAILY Qty: 60 5RF (DME) pen needle, diabetic [BD Ultra-Fine Mini Pen Needle] 31 gauge x 3/16" needle See Dose Instructions .ROUTE .MEDSUPPLY Qty: 100 3RF Dose Instruction: As directed Rx Instructions: As directed 1 daily, 1 x daily cyclobenzaprine 10 mg tablet 10 mg PO TID PRN (Reason: muscle spasm) Qty: 15 1RF Trelegy Ellipta 100-62.5-25 mcg blister with device 1 inh inhalation DAILY furosemide [Lasix] 40 mg tablet 40 mg PO DAILY Qty: 30 2RF Rx Instructions: Take 40 mg daily. If 3 pound weight gain, take additional dose. insulin glargine [Lantus Solostar U-100 Insulin] 100 unit/mL (3 mL) insulin pen 20 unit SQ HS nicotine 21 mg/24 hr patch 24 hour 1 patch transdermal DAILY Qty: 28 0RF nicotine 14 mg/24 hr patch 24 hour 1 patch transdermal DAILY Qty: 28 0RF nicotine 7 mg/24 hr patch 24 hour 1 patch transdermal Q24H Qty: 28 2RF gabapentin 600 mg tablet 600 mg PO BID Qty: 60 2RF albuterol sulfate 90 mcg/actuation HFA aerosol inhaler 2 puff inhalation QID PRN (Reason: shortness of breath or wheezing) Qty: 6.7 3RF metformin 500 mg tablet 1,000 mg PO BID Rx Instructions: 500 mg PO TWO TABS IN AM AND 2 TABS IN PM; pravastatin 40 mg tablet 40 mg PO HS Rx Instructions: TAKE 1 TABLET BY MOUTH AT BEDTIME. clopidogrel 75 mg tablet 75 mg PO DAILY Rx Instructions: TAKE 1 TABLET BY MOUTH ONCE DAILY. aspirin 81 mg tablet,delayed release (DR/EC) 81 mg PO DAILY Rx Instructions: TAKE 1 TABLET BY MOUTH DAILY. Discharge Orders: Left Against Medical Advice (Routine); Ordered 10/14/22 Ordered By: Quinton Keen Admission Data Admit Date/Time: 10/11/22 08:02 Attending Provider: Quinton Keen Admit Provider: Oscar Love Primary Care Provider: Kerry Heller Other Providers: Oscar Love ; Kartik Jackman ; Sonia Guzman Coding Level of Care Code None Diagnoses Heart failure with mid-range ejection fraction I50.22 COPD exacerbation J44.1 Coronary artery disease I25.10 S/P CABG x 5 Z95.1 DM2 (diabetes mellitus, type 2) E11.9 HTN (hypertension) I10 Hyperlipidemia E78.5 Pruritic rash L28.2 Peripheral neuropathy G62.9 BPH (benign prostatic hyperplasia) N40.0 Back pain M54.9
== END 2022-10-14 08:30 | disposition left against medical advice (07) | DRG 190 ==
LOC: ED 10:08 → EDINP 10:08 → SUATTDRO 13:12 → 3N 16:27 → 2N 10-10 02:38 → SUATTDRO 10-11 08:02
DX: Z95.1 Presence of aortocoronary bypass graft; E11.40 Type 2 diabetes mellitus with diabetic neuropathy, unspecified; Z83.3 Family history of diabetes mellitus; I08.0 Rheumatic disorders of both mitral and aortic valves; E11.65 Type 2 diabetes mellitus with hyperglycemia; E78.5 Hyperlipidemia, unspecified; Z91.119 Patient's noncompliance with dietary regimen due to unspecified reason; Z79.84 Long term (current) use of oral hypoglycemic drugs; Z79.82 Long term (current) use of aspirin; I25.10 Atherosclerotic heart disease of native coronary artery without angina pectoris; Z79.02 Long term (current) use of antithrombotics/antiplatelets; I67.9 Cerebrovascular disease, unspecified; I50.41 Acute combined systolic (congestive) and diastolic (congestive) heart failure; Z86.19 Personal history of other infectious and parasitic diseases; I50.810 Right heart failure, unspecified; F17.210 Nicotine dependence, cigarettes, uncomplicated; N40.0 Benign prostatic hyperplasia without lower urinary tract symptoms; I11.0 Hypertensive heart disease with heart failure; J44.1 Chronic obstructive pulmonary disease with (acute) exacerbation; I27.20 Pulmonary hypertension, unspecified

== ENCOUNTER 2023-01-11 11:27 | Observation (INO) ==
[2023-01-11] MEDS ORDERED: SODIUM CHLORIDE 0.9% 1000ML 500 ML IV ONE (14:09)
[2023-01-11] MEDS ORDERED: ALBUT/IPRATROP 3MG/0.5MG NEB 3 ML VIAL NEB STA (14:09)
[2023-01-11] MEDS ORDERED: ACETAMINOPHEN 1,000 MG/100 ML VIAL IV STA (14:09)
--- NOTE | 2023-01-11 14:22 | Emergency Department Note ---
Impression & Plan SOB (shortness of breath), Right-sided chest pain, CHF (congestive heart failure), COVID-19, Compression fracture ED Provider Note NAME: RODRIGO SCRUGGS AGE: 67 SEX: M : 1955 ARRIVES VIA: Walk-In INFORMANT: [Patient] ED PROVIDER(S): [Vignesh Guajardo MD] CHIEF COMPLAINT: Chest pain HISTORY OF PRESENT ILLNESS: The patient is a 67-year-old male presents with right-sided chest pain for the last 4 days. He has been coughing more and coughing makes the pain worse. Deep breathing makes the pain worse and he does feel short of breath. No fever. There has been no trauma or fall. The patient states that he does have a history of CABG x5, he was concerned that this could be his heart. PMHx/PSHx: See Below SOCIAL HISTORY: See Below. PHYSICAL EXAM: GENERAL: Patient is in no acute distress. HEENT: No acute trauma, normocephalic atraumatic, mucous membranes moist, no nasal congestion. NECK: No stridor, no adenopathy, no meningismus, trachea is midline. LUNGS: Breath sounds are diminished bilaterally when listening anterior. No wheezing. Dry cough noted. The patient does seem somewhat short of breath especially with speaking. Chest: Tender to the right chest wall, no contusion. HEART: Without murmurs gallops or rubs, regular rate and rhythm. ABDOMEN: Soft, nontender, bowel sounds positive, no peritonitis. EXTREMITIES: No cyanosis, mild to moderate bilateral pedal edema, full range of motion of all the joints without pain or difficulty, no signs for acute trauma. NEUROLOGIC: Oriented x 3, no acute motor or sensory deficits, no focal weakness. SKIN: No rash, no jaundice, no diaphoresis. DIFFERENTIAL DIAGNOSIS: RI, musculoskeletal pain, pneumonia, PE, pneumothorax, aortic dissection, COVID- 19, influenza, RSV, among others. EMERGENCY DEPARTMENT COURSE/PROCEDURES: Prior/Outside records reviewed: None ECG per my interpretation: Indication was chest pain. The ECG shows a normal sinus rhythm with a rate of 83. There is an old septal infarct. There is some T wave flattening in the inferior and lateral leads. There is no ST elevation, no PVCs. The QTc is 493. Compared to an ECG from 07 October 2022, the septal infarct findings appear similar. The ECG in general appears very similar. Continuous Cardiac Monitoring per my interpretation: An order was placed for continuous cardiac monitoring. The monitor shows a rate of 86 with normal sinus rhythm. Critical Care Note: I have personally spent 42 minutes of critical care time in the direct management of this patient. This includes bedside care, interpretation of diagnostic studies, and testing, discussion with consultants, patient, and family members, and other required patient management activities. This 42 minutes is in excess of all separately billable procedures. MEDICAL DECISION MAKING: There is no leukocytosis, a very mild anemia was seen. There was a normal platelet count. INR was slightly elevated at 1.2. No renal failure. Glucose somewhat low at 62. Lactic acid level was not elevated making severe sepsis less likely. There were some subtle liver enzyme elevations. BNP was elevated consistent with fluid overload. No evidence for pancreatitis. ECG showed a normal sinus rhythm, no obvious ST elevation. Cardiac enzyme testing x1 was not consistent with acute cardiac injury. COVID test returned positive. Influenza and RSV test returned negative. Chest x-ray showed cardiomegaly and some mild CHF, no pneumothorax or obvious pneumonia per my review. Chest CT does not show PE, CHF was seen, there was no pneumonia. Incidentally, an L1 compression fracture was suspected by CT imaging. On exam, the patient did appear short of breath. His chest wall on the right was tender to touch/palpation. The patient was given a small amount of IV saline, 500 cc. He received IV Tylenol for pain, he was given a DuoNeb. He eventually received a dose of IV Lasix for fluid overload. Breathing improved after the DuoNeb treatment. Given the apparent dyspnea, given his heart and lung disease, given the CHF and COVID findings, I do think a hospital stay is warranted. I spoke with the patient and case management, the on-call hospitalist was consulted. DISPOSITION: The patient's presentation and findings warrant a hospital stay. Past Med/Surg History Medical History BPH (benign prostatic hyperplasia) Cerumen impaction DM (diabetes mellitus), type 2, uncontrolled Elevated liver enzymes Hepatitis C infection Hyperlipidemia Vertebral artery stenosis Surgical History H/O cardiac catheterization History of hand surgery History of hernia repair History of surgical procedure S/P complete atrioventricular canal repair Family History Mother Myocardial infarction Cardiac disorder Father Myocardial infarction Daughter Asthma Brother Cardiac disorder Congestive heart failure Diabetes Sister Diabetes Denies family history of Ovarian cancer Prostate cancer Breast cancer Colorectal cancer Social History Smoking Status: Current every day smoker Tobacco Type: Cigarettes Cigarettes Per Day: 5-6 cigarettes per day; Second Hand Exposure: Yes; Hx Alcohol Use: Yes Hx Substance Use: No Preferred Language: Serbian Communication Ability: Effective Supervisor Operations Required: No marital status: Current Living Situation: Other Current Living Situation Comment: roomate current occupational status: disabled How many Children do You have: 3 Feels Safe at Home: Yes Childhood Exposure to Second-Hand Smoke: Yes caffeine: Yes Dental Care, Regularly: No Physical Activity Frequency: 1-2 Times per Week Seatbelt Use: always Sunscreen Use: No Assistive Devices: Nebulizer Allergies Allergies Allergy/AdvReac Type Severity Reaction Status Date / Time No Known Allergies Allergy Verified 11/10/22 08:39 Home Meds Home Medications Medication Instructions Recorded Confirmed aspirin 81 mg tablet,delayed 81 mg PO DAILY 10/07/22 11/10/22 release metformin 500 mg tablet 1,000 mg PO BID 10/07/22 11/10/22 pravastatin 40 mg tablet 40 mg PO HS 10/07/22 11/10/22 fluticasone fur. 100 mcg-umeclid 1 inh inhalation DAILY 10/14/22 11/10/22 62.5 mcg-vilant 25 mcg inhalat.powder (Trelegy Ellipta) insulin glargine 100 unit/mL (3 20 unit subcut HS 10/14/22 11/10/22 mL) subcutaneous pen (Lantus Solostar U-100 Insulin) Previous Rx's Medication Instructions Recorded nicotine 14 mg/24 hr daily 1 patch transdermal DAILY #28 ea 06/26/21 transdermal patch tamsulosin 0.4 mg capsule 0.4 mg PO DAILY #90 caps 01/28/22 pen needle, diabetic 31 gauge x #100 ea 09/22/2202/04" (BD Ultra-Fine Mini Pen Needle) albuterol sulfate 90 mcg/actuation 2 puff inhalation QID PRN 10/07/22 aerosol inhaler shortness of breath or wheezing #6.7 grams furosemide 40 mg tablet (Lasix) 40 mg PO DAILY #30 tabs 10/14/22 carvedilol 6.25 mg tablet 6.25 mg PO BID #180 tabs 10/29/22 clopidogrel 75 mg tablet 75 mg PO DAILY #90 tabs 10/29/22 cyclobenzaprine 10 mg tablet 10 mg PO TID PRN muscle spasm #15 11/30/22 tabs gabapentin 600 mg tablet 600 mg PO BID #60 tabs 11/30/22 glimepiride 2 mg tablet 4 mg PO DAILY #60 tabs 11/30/22 Results & Data (ED) Vital Signs Vital Signs - 24 hr 01/11/23 11:30 01/11/23 14:04 01/11/23 14:23 Pulse Rate 84 91 H Pulse Rate [Apical] 86 Pulse Rate from SpO2 Sensor Respiratory Rate 20 14 Respiratory Depth Normal Blood Pressure 97/80 L Blood Pressure [Left Arm] 142/86 H Blood Pressure Mean 85 Blood Pressure Mean [Left Arm] 104 Pulse Oximetry 95 98 Oxygen Delivery Method Room Air Sepsis Recent Fever Within 48 Hours No Sepsis New/Unexplained Change in Mental Status No Sepsis Action Taken by Nursing No Action Required 01/11/23 14:01 01/11/23 15:03 Pulse Rate 91 H Pulse Rate [Apical] 94 H Pulse Rate from SpO2 Sensor 91 H Respiratory Rate 29 H 18 Respiratory Depth Blood Pressure Blood Pressure [Left Arm] 111/95 Blood Pressure Mean Blood Pressure Mean [Left Arm] 100 Pulse Oximetry 94 92 Oxygen Delivery Method Room Air Sepsis Recent Fever Within 48 Hours Sepsis New/Unexplained Change in Mental Status Sepsis Action Taken by Assisted Medications Current Medication List: was personally reviewed by me Laboratory Data Attestation: I reviewed the patient's lab results. 01/11/23 14:51 01/11/23 14:51 Lab Results 01/11/23 01/11/23 01/11/23 Range/Units 14:42 14:51 14:51 WBC 4.98 (4.8-10.8) K/ul RBC 4.61 L (4.70-6.10) M/uL Hgb 13.4 L (14.0-18.0) g/dl Hct 42.8 (42.0-52.0) % MCV 92.8 (80.0-100.0) fL MCH 29.1 (25.0-34.0) pg MCHC 31.3 L (32.0-36.0) g/dL RDW Std Deviation 51.3 H (36.4-46.3) fL RDW Coeff of Epifanio 15.2 H (11.5-14.5) % Plt Count 143 (130-400) K/uL MPV 11.4 (9.4-12.4) fL Immature Gran % (Auto) 0.2 % Neut % (Auto) 73.7 % Lymph % (Auto) 15.7 % Catron % (Auto) 8.0 % Eos % (Auto) 1.6 % Baso % (Auto) 0.8 % Neut # (Auto) 3.67 (1.40-6.50) K/uL Lymph # (Auto) 0.78 L (1.2-3.4) K/uL Catron # (Auto) 0.40 (0.11-0.59) K/uL Eos # (Auto) 0.08 (0-0.50) K/uL Baso # (Auto) 0.04 (0-0.2) K/uL Immature Gran # (Auto) 0.01 (0.01-0.20) K/uL PT (9.0-12.0) Seconds INR (0.9-1.1) APTT (21.0-31.0) Seconds PTT Ratio Sodium (136-145) mmol/L Potassium (3.5-5.1) mmol/L Chloride (98-107) mmol/L Carbon Dioxide (21-32) mmol/L Anion Gap (3-11) BUN (6-23) mg/dl Creatinine (0.6-1.4) mg/dl Est Cr Clr Drug Dosing ml/min Est GFR ( Amer) ml/min Est GFR (Non-Af Amer) ml/min BUN/Creatinine Ratio (10-20) Glucose (70-99(Fasting)) mg/dl Lactate 2.0 (0.4-2.0) mmol/L Calcium (8.5-10.1) mg/dl Total Bilirubin (0.2-1.0) mg/dl AST (13-39) U/L ALT (7-52) U/L Alkaline Phosphatase (34-104) U/L Troponin I High Sens (0-20) pg/ml B-Natriuretic Peptide (0-100) pg/ml Total Protein (6.0-8.3) gm/dl Albumin (3.4-5.0) gm/dl Globulin (2.5-4.0) gm/dl Albumin/Globulin Ratio (0.9-2) Lipase (11-82) U/L SARS-CoV-2 (PCR) POSITIVE A* (Negative) Influenza Type A (PCR) Negative (Neg) Influenza Type B (PCR) Negative (Neg) RSV (RT-PCR) Negative (Neg) 01/11/23 01/11/23 01/11/23 Range/Units 14:51 14:51 14:52 WBC (4.8-10.8) K/ul RBC (4.70-6.10) M/uL Hgb (14.0-18.0) g/dl Hct (42.0-52.0) % MCV (80.0-100.0) fL MCH (25.0-34.0) pg MCHC (32.0-36.0) g/dL RDW Std Deviation (36.4-46.3) fL RDW Coeff of Epifanio (11.5-14.5) % Plt Count (130-400) K/uL MPV (9.4-12.4) fL Immature Gran % (Auto) % Neut % (Auto) % Lymph % (Auto) % Catron % (Auto) % Eos % (Auto) % Baso % (Auto) % Neut # (Auto) (1.40-6.50) K/uL Lymph # (Auto) (1.2-3.4) K/uL Catron # (Auto) (0.11-0.59) K/uL Eos # (Auto) (0-0.50) K/uL Baso # (Auto) (0-0.2) K/uL Immature Gran # (Auto) (0.01-0.20) K/uL PT 12.4 H (9.0-12.0) Seconds INR 1.2 H (0.9-1.1) APTT 26.2 (21.0-31.0) Seconds PTT Ratio 1.0 Sodium 139 (136-145) mmol/L Potassium 4.6 (3.5-5.1) mmol/L Chloride 102 (98-107) mmol/L Carbon Dioxide 29 (21-32) mmol/L Anion Gap 8 (3-11) BUN 19 (6-23) mg/dl Creatinine 1.02 (0.6-1.4) mg/dl Est Cr Clr Drug Dosing 76.9 ml/min Est GFR ( Amer) 89.0 ml/min Est GFR (Non-Af Amer) 76.8 ml/min BUN/Creatinine Ratio 18.6 (10-20) Glucose 62 L (70-99(Fasting)) mg/dl Lactate (0.4-2.0) mmol/L Calcium 9.5 (8.5-10.1) mg/dl Total Bilirubin 1.6 H (0.2-1.0) mg/dl AST 49 H (13-39) U/L ALT 38 (7-52) U/L Alkaline Phosphatase 77 (34-104) U/L Troponin I High Sens 14.4 (0-20) pg/ml B-Natriuretic Peptide 918 H (0-100) pg/ml Total Protein 7.6 (6.0-8.3) gm/dl Albumin 4.2 (3.4-5.0) gm/dl Globulin 3.4 (2.5-4.0) gm/dl Albumin/Globulin Ratio 1.2 (0.9-2) Lipase 26 (11-82) U/L SARS-CoV-2 (PCR) (Negative) Influenza Type A (PCR) (Neg) Influenza Type B (PCR) (Neg) RSV (RT-PCR) (Neg) Administered Medications Discontinued Medications Albuterol (Albut/Ipratrop 3mg/0.5mg Neb 3 Ml Vial) 3 ml NEB NOW STA; Protocol Stop: 01/11/23 14:10 Last Admin: 01/11/23 14:40 Dose: 3 ml Documented By: BENI Sodium Chloride (Nss 1000ml) 500 mls @ 999 mls/hr IV .Q31M ONE Stop: 01/11/23 14:39 Last Admin: 01/11/23 14:37 Dose: 999 mls/hr Documented By: BENI Acetaminophen (Ofirmev) 1,000 mg in 100 mls @ 400 mls/hr IV NOW STA Stop: 01/11/23 14:23 Last Infusion: 01/11/23 14:53 Dose: 0 mls/hr Documented By: Admin: 01/11/23 14:38 Dose: 400 mls/hr Documented By: BENI Ioversol (Optiray 320 500ml) 114 ml IV ONCE ONE Stop: 01/11/23 16:18 Last Admin: 01/11/23 16:18 Dose: 114 ml Documented By: RIAZ Imaging Data Radiologist's Impression: Chest CTA 01/11/23 14:09 CT ANGIOGRAM OF THE CHEST CLINICAL HISTORY: Dyspnea. Covid. COMPARISON STUDY: Chest CT dated 07/20/2022. Chest x-ray dated 01/11/2023. TECHNIQUE: Following the IV administration of 114 cc of Optiray 320, CT angiogram of the chest was performed from the upper abdomen to the thoracic inlet utilizing the pulmonary embolus protocol. Images are reviewed in the axial, sagittal, and coronal planes. 3-D MIPS images are created and assessed. IV contrast was administered without complication. A dose lowering technique was utilized adhering to the principles of ALARA. CT DOSE: 569.46 mGycm FINDINGS: Thyroid: Imaged portions of the thyroid gland are normal in size and attenuation. Thoracic aorta: There is atherosclerotic calcification of the thoracic aorta, which is normal in caliber and demonstrates bovine variant arch anatomy. The thoracic aorta is not opacified. Pulmonary vasculature: The main pulmonary arteries are mildly dilated suggesting pulmonary hypertension. There are no filling defects identified in main, lobar, or segmental pulmonary branches to suggest pulmonary embolus. Heart: The patient is status post midline sternotomy. The heart is enlarged and without pericardial effusion. The coronary arteries are densely calcified. Lungs and pleural spaces: Evaluation of the lung parenchyma is significantly degraded by motion artifact. Emphysematous change is noted. There are aueqd-wl-bbtexwgz pleural effusions with dependent consolidation. Intralobular septal thickening suggests congestive failure. The trachea and central airways appear clear. Tiny pulmonary nodules seen on the 07/20/2022 CT are not well visualized due to motion artifact. Mediastinum: There is no mediastinal lymphadenopathy. Diane: Clear. Axillae: There is no axillary lymphadenopathy. Upper abdomen: There is trace perihepatic ascites. A small hiatal hernia is noted. Skeletal structures: The skeletal structures are osteopenic. There is a severe compression deformity of L1. This is new from 07/20/2022 and appears subacute. There is associated paravertebral edema. Findings a retropulsed 5 to 7 mm and contributes to moderate central canal stenosis. No lytic or blastic bony lesions are seen. There is a healing right posterior sixth rib fracture. There are production graphic designer gerardo/healed left-sided rib fractures. IMPRESSION: 1. There is no evidence of pulmonary embolus in the main, lobar, or segmental pulmonary arteries. 2. There is a subacute appearing compression fracture of L1 with severe loss of height and associated paravertebral edema. Fragments are retropulsed by up to 7 mm and contribute to moderate central canal stenosis. Correlate for point tenderness. 3. Cardiomegaly and emphysema with evidence of congestive failure. 4. Uejve-wk-kqqxfxlq pleural effusions with dependent consolidation. 5. Trace perihepatic ascites. 6. Additional findings as above. ACT 112: Negative or not required by law. Electronically signed by: Vignesh López M.D. 01/11/2023 4:33 PM Chest X-Ray 01/11/23 14:10 XR chest 1V portable CLINICAL HISTORY: Chest pain, nonspecific TECHNIQUE: Single frontal radiograph of the chest was obtained. Comparison: Comparison is made to chest radiograph 10/07/2022 FINDINGS: Median sternotomy wires are unchanged. Cardiomegaly is noted. Prominence and cephalization of the vasculature is seen. No evidence of pleural effusion or pneumothorax. IMPRESSION: No acute chest disease. Cardiomegaly is noted. ACT 112: Negative or not required by law. Electronically signed by: Star Padgett M.D. 01/11/2023 3:28 PM Discharge Plan Visit Data Chief Complaint: Chest Pain Stated Complaint: CHEST PAINS ED Provider: Vignesh Guajardo Discharge Problem: SOB (shortness of breath), Right-sided chest pain, CHF (congestive heart failure), COVID-19, Compression fracture Patient Disposition: Admitted As Inpatient Condition: Fair Forms Stand Alone Forms: [facility], [facility], Important Visit Information Prescriptions Prescriptions: No Action tamsulosin 0.4 mg capsule 0.4 mg PO DAILY Qty: 90 2RF (DME) pen needle, diabetic [BD Ultra-Fine Mini Pen Needle] 31 gauge x 3/16" needle See Dose Instructions .ROUTE .MEDSUPPLY Qty: 100 3RF Dose Instruction: As directed Rx Instructions: As directed 1 daily, 1 x daily carvedilol 6.25 mg tablet 6.25 mg PO BID Qty: 180 1RF Rx Instructions: must administer with a meal/food clopidogrel 75 mg tablet 75 mg PO DAILY Qty: 90 1RF Rx Instructions: TAKE 1 TABLET BY MOUTH ONCE DAILY. gabapentin 600 mg tablet 600 mg PO BID Qty: 60 2RF cyclobenzaprine 10 mg tablet 10 mg PO TID PRN (Reason: muscle spasm) Qty: 15 1RF glimepiride 2 mg tablet 4 mg PO DAILY Qty: 60 5RF Trelegy Ellipta 100-62.5-25 mcg blister with device 1 inh inhalation DAILY furosemide [Lasix] 40 mg tablet 40 mg PO DAILY Qty: 30 2RF Rx Instructions: Take 40 mg daily. If 3 pound weight gain, take additional dose. insulin glargine [Lantus Solostar U-100 Insulin] 100 unit/mL (3 mL) insulin pen 20 unit SQ HS nicotine 14 mg/24 hr patch 24 hour 1 patch transdermal DAILY Qty: 28 0RF albuterol sulfate 90 mcg/actuation HFA aerosol inhaler 2 puff inhalation QID PRN (Reason: shortness of breath or wheezing) Qty: 6.7 3RF metformin 500 mg tablet 1,000 mg PO BID Rx Instructions: 500 mg PO TWO TABS IN AM AND 2 TABS IN PM; pravastatin 40 mg tablet 40 mg PO HS Rx Instructions: TAKE 1 TABLET BY MOUTH AT BEDTIME. aspirin 81 mg tablet,delayed release (DR/EC) 81 mg PO DAILY Rx Instructions: TAKE 1 TABLET BY MOUTH DAILY. Referrals Referrals: Kerry Heller MD [Primary Care Provider] -
[2023-01-11 15:24] LABS: Basophils # (auto) 0.04 K/uL (0-0.2); Basophils % (auto) 0.8 %; Eosinophils # (auto) 0.08 K/uL (0-0.50); Eosinophils % (auto) 1.6 %; Hematocrit (blood only) 42.8 % (42.0-52.0); Hemoglobin 13.4 g/dl (14.0-18.0); Immature Granulocytes # (auto) 0.01 K/uL (0.01-0.20); Immature Granulocytes % (auto) 0.2 %; Lymphocytes # (auto) 0.78 K/uL (1.2-3.4); Lymphocytes % (auto) 15.7 %; Mean Corpuscular Hemoglobin 29.1 pg (25.0-34.0); Mean Corpuscular Hgb Conc 31.3 g/dL (32.0-36.0); Mean Corpuscular Volume 92.8 fL (80.0-100.0); Mean Platelet Volume 11.4 fL (9.4-12.4); Neutrophils # (auto) 3.67 K/uL (1.40-6.50); Neutrophils % (auto) 73.7 %; Platelet Count 143 K/uL (130-400); RDW Coefficient of Variation 15.2 % (11.5-14.5); RDW Standard Deviation 51.3 fL (36.4-46.3); Red Blood Count 4.61 M/uL (4.70-6.10); White Blood Count 4.98 K/ul (4.8-10.8)
--- NOTE | 2023-01-11 15:29 | XRay Report ---
XR chest 1V portable CLINICAL HISTORY: Chest pain, nonspecific TECHNIQUE: Single frontal radiograph of the chest was obtained. Comparison: Comparison is made to chest radiograph 10/07/2022 FINDINGS: Median sternotomy wires are unchanged. Cardiomegaly is noted. Prominence and cephalization of the vas culature is seen. No evidence of pleural effusion or pneumothorax. IMPRESSION: No acute chest disease. Cardiomegaly is noted. ACT 112: Negative or not required by law. Electronically signed by: Star Padgett M.D. 01/11/2023 3:28 PM
[2023-01-11 15:30] LABS: Influenza A virus by PCR Negative (Neg); Influenza B virus by PCR Negative (Neg); RSV by PCR Negative (Neg)
[2023-01-11 15:43] LABS: Albumin Globulin Ratio 1.2 (0.9-2); Albumin Level 4.2 gm/dl (3.4-5.0); BUN Creatinine Ratio 18.6 (10-20); Bilirubin,Total 1.6 mg/dl (0.2-1.0); Calcium 9.5 mg/dl (8.5-10.1); Creatinine Clr Calc Pharmacy 76.9 ml/min; Est GFR (Non-African American) 76.8 ml/min; Globulin 3.4 gm/dl (2.5-4.0); Potassium 4.6 mmol/L (3.5-5.1); Total Protein 7.6 gm/dl (6.0-8.3)
[2023-01-11 15:44] LABS: Troponin I High Sensitivity 14.4 pg/ml (0-20)
[2023-01-11 15:50] LABS: INR 1.2 (0.9-1.1); Partial Thromboplastin Time 26.2 Seconds (21.0-31.0); Prothrombin Time 12.4 Seconds (9.0-12.0)
[2023-01-11 15:59] LABS: SARS CoV2 RNA(COVID-19) Ceph POSITIVE (Negative)
[2023-01-11] MEDS ORDERED: OPTIRAY 320 500ml IV ONE (16:17)
--- NOTE | 2023-01-11 16:36 | CT Scan Report ---
CT ANGIOGRAM OF THE CHEST CLINICAL HISTORY: Dyspnea. Covid. COMPARISON STUDY: Chest CT dated 07/20/2022. Chest x-ray dated 01/11/2023. TECHNIQUE: Following the IV administration of 114 cc of Optiray 320, CT angiogram of the chest was pe rformed from the upper abdomen to the thoracic inlet utilizing the pulmonary embolus protocol. Images are reviewed in the axial, sagittal, and coronal planes. 3-D MIPS images are created and assessed. I V contrast was administered without complication. A dose lowering technique was utilized adhering to the principles of ALARA. CT DOSE: 569.46 mGycm FINDINGS: Thyroid: Imaged portions of the thyroid gland are normal in size and attenuation. Thoracic aorta: There is atherosclerotic calcification of the thoracic aorta, which is normal in shala cristian and demonstrates bovine variant arch anatomy. The thoracic aorta is not opacified. Pulmonary vasculature: The main pulmonary arteries are mildly dilated suggesting pulmonary hypertensi on. There are no filling defects identified in main, lobar, or segmental pulmonary branches to sugges t pulmonary embolus. Heart: The patient is status post midline sternotomy. The heart is enlarged and without pericardial e ffusion. The coronary arteries are densely calcified. Lungs and pleural spaces: Evaluation of the lung parenchyma is significantly degraded by motion artif act. Emphysematous change is noted. There are qieqh-ge-nnbamcwd pleural effusions with dependent cons olidation. Intralobular septal thickening suggests congestive failure. The trachea and central airway s appear clear. Tiny pulmonary nodules seen on the 07/20/2022 CT are not well visualized due to motion artifact. Mediastinum: There is no mediastinal lymphadenopathy. Diane: Clear. Axillae: There is no axillary lymphadenopathy. Upper abdomen: There is trace perihepatic ascites. A small hiatal hernia is noted. Skeletal structures: The skeletal structures are osteopenic. There is a severe compression deformity of L1. This is new from 07/20/2022 and appears subacute. There is associated paravertebral edema. Find ings a retropulsed 5 to 7 mm and contributes to moderate central canal stenosis. No lytic or blastic bony lesions are seen. There is a healing right posterior sixth rib fracture. There are chronic/heale d left-sided rib fractures. IMPRESSION: 1. There is no evidence of pulmonary embolus in the main, lobar, or segmental pulmonary arteries. 2. There is a subacute appearing compression fracture of L1 with severe loss of height and associated paravertebral edema. Fragments are retropulsed by up to 7 mm and contribute to moderate central radha l stenosis. Correlate for point tenderness. 3. Cardiomegaly and emphysema with evidence of congestive failure. 4. Birqt-ke-czzvvznj pleural effusions with dependent consolidation. 5. Trace perihepatic ascites. 6. Additional findings as above. ACT 112: Negative or not required by law. Electronically signed by: Vignesh López M.D. 01/11/2023 4:33 PM
[2023-01-11] MEDS ORDERED: FUROSEMIDE 40 MG/4 ML VIAL IV ONE (16:41)
--- NOTE | 2023-01-11 17:12 | Electrocardiogram Report ---
Test Reason : Blood Pressure : / mmHG Vent. Rate : 083 BPM Atrial Rate : 083 BPM P-R Int : 156 ms QRS Dur : 100 ms QT Int : 420 ms P-R-T Axes : 044 038 -27 degrees QTc Int : 493 ms Normal sinus rhythm Nonspecific ST abnormality Abnormal ECG When compared with ECG of 07-OCT-2022 10:13, Nonspecific T wave abnormality now evident in Inferior leads Confirmed by Sandeep Tim ([id number]) on 01/11/2023 5:11:31 PM Referred By: REFERRED SELF Confirmed By:Avinash Tim
--- NOTE | 2023-01-11 17:51 | History & Physical Report ---
Date of Service January 11, 2023 Assessment & Plan (1) Acute exacerbation of CHF (congestive heart failure): Plan: Last echo 10/07/2022 showed LVEF of 30-35% as well as significant diastolic dysfunction With continued dietary indiscretion outside of the hospital IV Lasix received in the ER, continue 40 mg IV daily with strict intake and output, daily standing weights Also received albuterol neb after which his hypoxia resolved, see COVID-19/COPD. CHF program referral placed. (2) HFrEF (heart failure with reduced ejection fraction): Plan: See #1 (3) COVID-19: Plan: Noted on admission testing, and was hypoxic on arrival. Presentation convoluted by the fact that patient has a history of COPD and evidence of pulmonary edema on imaging with a history of heart failure. Given the patient's hypoxia and wheezing resolved with 1 albuterol nebulizer, will defer further IV steroids or remdesivir at this time. Should hypoxia return can consider initiating these medications. Nebulizers ordered as needed. (4) DM2 (diabetes mellitus, type 2): Plan: Appreciate glycemic management consult, sliding scale insulin ordered. A1c 5.7%. (5) Coronary artery disease: Plan: No evidence of ACS given normal troponin with chest pain for 4 days, no EKG changes Continue aspirin, Plavix, statin (6) COPD (chronic obstructive pulmonary disease): Plan: History of, reports has been smoking "for his whole life", no cigarettes for the last 5 days during his illness With wheezing initially on exam, but resolved after albuterol nebulizer x1, will order albuterol nebs as needed but given patient is saturating well on room air at this point will defer IV steroids. (7) Right-sided chest pain: Plan: In the setting of 4 days of cough, given length of symptoms and normal troponin, no acute EKG changes, feel that ACS is extremely unlikely Lidocaine patches for chest wall pain Tessalon perles as needed for cough Plan Lovenox 40 mg daily for DVT prophylaxis Low-sodium diabetic diet Telemetry for cardiac monitoring Patient is a full code History of Present Illness Chief Complaint: Shortness of breath Primary Care Provider: Kerry Heller MD 67-year-old male past medical history significant for HFrEF, DM 2, CAD status post CABG x5, COPD presented to the ER for about 4 days of worsening shortness of breath and cough with associated right chest wall pain. Pain is worse with cough and with deep breaths. He notes that over the last 3 months he has had a progressive worsening in his breathing since discharge from the hospital, such that he has dyspnea on exertion for example when he goes to the grocery store, and also has difficulty with lying flat. He reports compliance with taking his furosemide at home. But does admit to dietary indiscretion including deli meats, canned foods, and the occasional freezer meal. He denies any sore throat, nasal congestion, fevers, known sick contacts, nausea, diarrhea. He is COVID vaccinated and boosted. Patient reports compliance with his Trelegy Ellipta, and over the last couple of days admits to using his albuterol inhaler "a handful of times". In the ER patient noted to be briefly hypoxic to 84%, received a nebulizer with resolution of hypoxia and is now saturating to 100% on room air. Chest x-ray and chest CTA with evidence of pulmonary edema with small to moderate bilateral pleural effusions. No evidence of pulmonary embolism or focal consolidation suggestive of pneumonia. Allergies Allergy/AdvReac Type Severity Reaction Status Date / Time No Known Allergies Allergy Verified 01/11/23 16:58 Home Medications Medication Instructions Recorded Confirmed Type tamsulosin 0.4 mg capsule 0.4 mg PO DAILY #90 caps 01/28/22 01/11/23 Rx pen needle, diabetic 31 gauge x #100 ea 09/22/22 11/10/22 Rx 3/16" (BD Ultra-Fine Mini Pen Needle) albuterol sulfate 90 mcg/actuation 2 puff inhalation QID PRN 10/07/22 01/11/23 Rx aerosol inhaler shortness of breath or wheezing #6.7 grams aspirin 81 mg tablet,delayed 81 mg PO DAILY 10/07/22 01/11/23 History release metformin 500 mg tablet 1,000 mg PO BID 10/07/22 01/11/23 History pravastatin 40 mg tablet 40 mg PO HS 10/07/22 01/11/23 History fluticasone fur. 100 mcg-umeclid 1 inh inhalation DAILY 10/14/22 01/11/23 History 62.5 mcg-vilant 25 mcg inhalat.powder (Trelegy Ellipta) furosemide 40 mg tablet (Lasix) 40 mg PO DAILY #30 tabs 10/14/22 01/11/23 Rx insulin glargine 100 unit/mL (3 23 - 26 unit subcut HS 10/14/22 01/11/23 History mL) subcutaneous pen (Lantus Solostar U-100 Insulin) carvedilol 6.25 mg tablet 6.25 mg PO BID #180 tabs 10/29/22 01/11/23 Rx clopidogrel 75 mg tablet 75 mg PO DAILY #90 tabs 10/29/22 01/11/23 Rx cyclobenzaprine 10 mg tablet 10 mg PO TID PRN muscle spasm #15 11/30/22 01/11/23 Rx tabs gabapentin 600 mg tablet 600 mg PO BID #60 tabs 11/30/22 01/11/23 Rx glimepiride 2 mg tablet 4 mg PO DAILY #60 tabs 11/30/22 01/11/23 Rx Past Med/Surg History Medical History BPH (benign prostatic hyperplasia) Cerumen impaction DM (diabetes mellitus), type 2, uncontrolled Elevated liver enzymes Hepatitis C infection Hyperlipidemia Vertebral artery stenosis Surgical History H/O cardiac catheterization History of hand surgery History of hernia repair History of surgical procedure Carotid Artery Catheterization S/P complete atrioventricular canal repair Family History Mother Myocardial infarction Cardiac disorder Father Myocardial infarction Daughter Asthma Brother Cardiac disorder Congestive heart failure Diabetes Sister Diabetes Denies family history of Ovarian cancer Prostate cancer Breast cancer Colorectal cancer Social History Smoking Status: Current some day smoker Tobacco Type: Cigarettes Cigarettes Per Day: 16; Second Hand Exposure: Yes; Hx Alcohol Use: No Hx Substance Use: No Preferred Language: Mongolian Communication Ability: Effective Alliance Director Required: No Beliefs That Will Affect Care: None marital status: Current Living Situation: Other Current Living Situation Comment: roomate current occupational status: disabled How many Children do You have: 3 Other Information That Helps Us Care for You: No Feels Safe at Home: Yes Safety Concerns: Feels Safe At This Time Childhood Exposure to Second-Hand Smoke: Yes caffeine: Yes Dental Care, Regularly: No Physical Activity Frequency: 1-2 Times per Week Seatbelt Use: always Sunscreen Use: No Assistive Devices: Glasses Review of Systems Review of Systems: All systems reviewed & are unremarkable except as noted in Subjective Physical Exam Constitutional: well developed and well nourished; no acute distress Eyes: PERRL, conjunctivae normal, anicteric sclerae ENMT: external ear and nose normal, oropharynx normal Neck: trachea midline, no thyromegaly Respiratory: Intermittent wheeze, bibasilar crackles Cardiovascular: Heart regular rate and rhythm, 1+ pitting edema to bilateral lower extremities Gastrointestinal (Abdomen): normal bowel sounds, soft, nontender, no hepatosplenomegaly Musculoskeletal: no cyanosis or clubbing, extremities motor strength 5/5 Skin: no rashes, warm and dry Neurologic: AAOx3, normal speech. PERRLA, EOMI, no nystagmus. Bilateral UE, LE, and face without sensory or motor deficits. Psychiatric: A+Ox3, euthymic affect Results & Data Results & Data ([facility]) Vital Signs (Past 12 Hours) Vital Signs Pulse Pulse Resp BP BP Pulse Ox O2 Del Method 01/11/23 17:00 84 22 100 01/11/23 17:00 100/65 01/11/23 16:30 88 23 100 01/11/23 16:22 98/78 L 01/11/23 16:22 89 15 100 01/11/23 16:00 92 H 18 99 01/11/23 16:00 112/77 01/11/23 15:30 94 H 22 88 L 01/11/23 15:00 92 H 20 84 L 01/11/23 14:30 94 H 20 94 01/11/23 15:03 94 H 18 111/95 92 Room Air 01/11/23 14:01 91 H 29 H 94 01/11/23 14:23 91 H 01/11/23 14:04 86 14 142/86 H 98 01/11/23 11:30 84 20 97/80 L 95 Room Air Code Status & VTE Plan VTE Prophylaxis Plan VTE Prophylaxis will be ordered: Yes PG Care Time/CCT Total # of Minutes Spent Total Time Spent with Patient: Total time spent is greater than 50% in coordination of care (as documented) at patient's floor/unit and/or counseling patient: Coding Level of Care Code 10274 INT INP/OBS CARE MIN Diagnoses Acute exacerbation of CHF (congestive heart failure) I50.9 HFrEF (heart failure with reduced ejection fraction) I50.20 COVID-19 U07.1 DM2 (diabetes mellitus, type 2) E11.9 Coronary artery disease I25.10 COPD (chronic obstructive pulmonary disease) J44.9 Right-sided chest pain R07.9
[2023-01-11] MEDS ORDERED: GLUCOSE 10 TAB/TUBE PO PRN (19:36)
[2023-01-11] MEDS ORDERED: AZITHROMYCIN 250 MG TAB PO ONE (19:36)
[2023-01-11] MEDS ORDERED: GLUCAGON FOR INJ 1 MG VIAL SQ PRN (19:36)
[2023-01-11] MEDS ORDERED: ALBUT/IPRATROP 3MG/0.5MG NEB 3 ML VIAL NEB PRN (19:36)
[2023-01-11] MEDS ORDERED: CYCLOBENZAPRINE HCL 10 MG TAB PO PRN (19:36)
[2023-01-11] MEDS ORDERED: ONDANSETRON INJ 2 MG/ML 2 ML VIAL IV PRN (19:36)
[2023-01-11] MEDS ORDERED: PHARMACY GLYCEMIC MGMT CONSULT PRN (19:36)
[2023-01-11] MEDS ORDERED: DEXTROSE 50% 50 ML SYRINGE IV PRN (19:36)
[2023-01-11] MEDS ORDERED: POLYETHYLENE (MIRALAX) 17 GM PACK PO PRN (19:36)
[2023-01-11] MEDS ORDERED: CARBOHYDRATES FOR HYPOGLYCEMIA PO PRN (19:36)
[2023-01-11] MEDS ORDERED: GLUCOSE 40% GEL 15 GM TUBE PO PRN (19:36)
[2023-01-11] MEDS ORDERED: ACETAMINOPHEN 325 MG TAB PO PRN (19:36)
[2023-01-11] MEDS: GABAPENTIN 600 MG TAB PO SCH (20:48)
[2023-01-11] MEDS: carvediloL 6.25 MG TAB PO SCH (20:48)
[2023-01-11] MEDS: ENOXAPARIN INJ 40 MG/0.4 ML SYR SQ SCH (20:49)
[2023-01-11] MEDS: PRAVASTATIN SOD 40 MG TAB PO SCH (20:49)
[2023-01-11] MEDS ORDERED: LANTUS PER UNIT CHARGE SQ SCH (21:00)
[2023-01-11] MEDS ORDERED: BENZONATATE 100 MG CAPSULE PO PRN (21:38)
[2023-01-11] MEDS: INSULIN ASPART PER UNIT SC SCH (21:48)
[2023-01-12 08:13] LABS: Hematocrit (blood only) 39.5 % (42.0-52.0); Mean Corpuscular Hemoglobin 29.1 pg (25.0-34.0); Mean Corpuscular Hgb Conc 32.9 g/dL (32.0-36.0); Mean Corpuscular Volume 88.6 fL (80.0-100.0); Mean Platelet Volume 12.2 fL (9.4-12.4); Platelet Count 124 K/uL (130-400); Red Blood Count 4.46 M/uL (4.70-6.10); White Blood Count 4.95 K/ul (4.8-10.8)
[2023-01-12 08:32] LABS: BUN Creatinine Ratio 17.3 (10-20); Calcium 9.5 mg/dl (8.5-10.1); Creatinine Clr Calc Pharmacy 71.3 ml/min; Est GFR (African American) 81.2 ml/min; Est GFR (Non-African American) 70.1 ml/min; Potassium 4.5 mmol/L (3.5-5.1)
[2023-01-12] MEDS: INSULIN ASPART PER UNIT SC SCH ×4 (08:44→20:58)
[2023-01-12] MEDS: UMECLIDINIUM BROMIDE 62.5MCG/BLISTER 7 PUFFS/INHALER INH SCH (09:33)
[2023-01-12] MEDS: AZITHROMYCIN 250 MG TAB PO SCH (09:34)
[2023-01-12] MEDS: GABAPENTIN 600 MG TAB PO SCH ×2 (09:34→20:12)
[2023-01-12] MEDS: ASPIRIN 81 MG ECTAB PO SCH (09:34)
[2023-01-12] MEDS: CLOPIDOGREL BISULFATE 75 MG TAB PO SCH (09:34)
[2023-01-12] MEDS: TAMSULOSIN HCL 0.4 MG CAP PO SCH (09:34)
[2023-01-12] MEDS: FLUTICASONE/VILANTEROL 100/25MCG 14 PUFFS/INHALER INH SCH (09:34)
[2023-01-12] MEDS: carvediloL 6.25 MG TAB PO SCH ×2 (09:35→20:11)
[2023-01-12] MEDS: LIDOCAINE 5% 1 PATCH TD SCH (09:35)
[2023-01-12] MEDS: guaiFENesin 600 MG TABCR PO SCH ×2 (09:35→20:12)
[2023-01-12] MEDS: FUROSEMIDE 40 MG/4 ML VIAL IV SCH (09:35)
--- NOTE | 2023-01-12 11:37 | Hospitalist Progress Note ---
Date of Service January 12, 2023 Assessment & Plan (1) Acute exacerbation of CHF (congestive heart failure): Plan: Admitted on account of cough, sob and found to be hypoxic 84% Admits to dietary indiscretion Chest x ray showed evidence of pulm congestion Last echo 10/07/2022 showed LVEF of 30-35% as well as significant diastolic dysfunction IV Lasix received in the ER, continue 40 mg IV daily with strict intake and output, daily weights Also received albuterol neb after which his hypoxia resolved CHF program referral placed. (2) HFrEF (heart failure with reduced ejection fraction): Plan: chronic with acute exacerbation (3) COVID-19: Plan: Noted on admission testing, and was hypoxic on arrival. currently on room air (4) DM2 (diabetes mellitus, type 2): Plan: Appreciate glycemic management consult, sliding scale insulin ordered. A1c 5.7%. (5) Coronary artery disease: Plan: No evidence of ACS given normal troponin with chest pain for 4 days, no EKG changes Continue aspirin, Plavix, statin (6) COPD (chronic obstructive pulmonary disease): Plan: History of, reports has been smoking "for his whole life", no cigarettes for the last 5 days during his illness With wheezing initially on exam, but resolved after albuterol nebulizer x1, will order albuterol nebs as needed but given patient is saturating well on room air at this point will defer IV steroids. (7) Right-sided chest pain: Plan: most likely musculoskeletal, now resolved No ekg changes Lidocaine patches for chest wall pain Tessalon perles as needed for cough Plan Lovenox 40 mg daily for DVT prophylaxis Low-sodium diabetic diet Telemetry for cardiac monitoring Patient is a full code Admission and Anticipated Discharge Date Admission Date: January 11, 2023 Subjective patient seen and examined, denies chest pain, but complains of cough Review of Systems Review of Systems: All systems reviewed are negative, apart from the ones contained in the history. Physical Exam Physical Exam: The patient is awake, alert and oriented 3, well developed and well nourished, normocephalic and atraumatic, lying in bed and in no acute distress. HEENT--PERRL, EOMI, mucous membranes and oropharynx mildly dry Neck--supple. No JVD. No bruits. Thyroid normal, trachea midline, no adenopathy. Heart--normal S1 and S2. No murmurs, rubs or gallops. Lungs--clear bilaterally, no respiratory distress, no accessory muscle use. Abdomen--normal bowel sounds and soft. Mild epigastric and left sided abdominal pain Extremities--no cyanosis or clubbing. No edema. Dermatologic--normal skin turgor, normal color, no abnormal lymph nodes, no rash. Neurologic--cranial nerves II through XII grossly intact. Rheumatologic--normal range of motion. Psychiatric--normal affect. Results & Data Results & Data ([facility]) Vital Signs (Past 12 Hours) Vital Signs Temp Pulse Resp BP Pulse Ox O2 Del Method O2 Flow Rate 01/12/23 08:00 Room Air 01/12/23 09:31 100.0 F H 108 H 20 92/71 L 90 Room Air 01/12/23 06:00 95/64 L 01/12/23 04:25 99.9 F H 101 H 19 96/44 L 95 Room Air 01/12/23 00:10 Nasal Cannula 2 01/11/23 23:46 96 Nasal Cannula 2 01/11/23 23:42 99.0 F 110 H 22 95/67 L 87 L Room Air PG Care Time/CCT Total # of Minutes Spent Total Time Spent with Patient: Total time spent is greater than 50% in coordination of care (as documented) at patient's floor/unit and/or counseling patient: Coding Level of Care Code 34611 SUB INP/OBS CARE 2/35MIN Diagnoses Acute exacerbation of CHF (congestive heart failure) I50.9 HFrEF (heart failure with reduced ejection fraction) I50.20 COVID-19 U07.1 DM2 (diabetes mellitus, type 2) E11.9 Coronary artery disease I25.10 COPD (chronic obstructive pulmonary disease) J44.9 Right-sided chest pain R07.9 Time Spent (min) 35
--- NOTE | 2023-01-12 13:54 | Pharmacy Report ---
Pharmacy Glycemic Short Note 2 - Date of Service January 12, 2023 - Glycemic Short BSG Results (Last 24 hours): 01/11/23 01/11/23 01/11/23 14:51 20:39 20:41 Glucose 62 L POC Glucose 57 L* 53 L* 01/11/23 01/11/23 01/12/23 21:07 23:38 07:43 Glucose 72 POC Glucose 109 H 90 01/12/23 01/12/23 12:51 12:52 Glucose POC Glucose 65 L* 70 OUTPATIENT ANTIDIABETIC REGIMEN: * Lantus 23 - 26 units HS * Metformin 1000 mg BID * Glimepiride 4 mg QD ASSESSMENT: * RS is a 67 yr/old male with a past medical history if T2DM who was admitted for acute exacerbation of CHF. * A1c was 5.4% 11/04/22. BSG yesterday was between 53 -109 mg/dL. No insulin was administered * BSG trending low. FBSG today was 72 mg/dL. POC BSG from lunchtime was between 65 -70 mg/dL * No basal is needed. Will loosen Novolog parameters to proactively prevent hypoglycemic event PLAN FOR INPATIENT GLYCEMIC CONTROL: * Hold outpatient oral diabetes medications * Bolus insulin * NovoLog per scale ACHS or Q6hrs while NPO * Goal Range: Low 110 mg/dL - High 140 mg/dL * Correction Factor: 45 mg/dL/unit * Nutritional / Prandial insulin per carb ratio of 1 unit per 15 grams CHO consumed
[2023-01-12] MEDS: ENOXAPARIN INJ 40 MG/0.4 ML SYR SQ SCH (20:11)
[2023-01-12] MEDS: guaiFENesin/DEXTROM SYRUP 100MG/10MG 5ML UDC PO PRN (20:11)
[2023-01-12] MEDS: PRAVASTATIN SOD 40 MG TAB PO SCH (20:11)
--- NOTE | 2023-01-12 21:33 | CT Scan Report ---
CT lumbar spine wo con CLINICAL HISTORY: back pain, Lumbar spine fracture TECHNIQUE: Multidetector row helical CT of the lumbar spine was performed without administration of i ntravenous contrast. Coronal and sagittal reformations were obtained. Automated dose lowering techniq ues and/or adjustment according to patient size were utilized for this exam. CT DOSE: 719.10 mGy.cm Comparison: Comparison is made to CTA chest 01/11/2023 and CTA chest 07/20/2022 FINDINGS: For counting purposes, the last complete intervertebral disc space is considered L5-S1. There is vertebral plana of L1, similar to appearance on CTA chest 01/11/2023 but new from 07/20/2022. There is approximately 9 mm retropulsion. Degenerative changes are seen in the spine. Vertebral body alignment is within normal limits. Atherosclerotic changes are seen in the aorta. Partial visualizati on of bilateral pleural effusions. IMPRESSION: Vertebral plana of L1 with approximately 9 mm retropulsion is new from 2021. Degenerative changes are seen spine. ACT 112: Negative or not required by law. Electronically signed by: Star Padgett M.D. 01/12/2023 9:31 PM
[2023-01-13 07:49] LABS: BUN Creatinine Ratio 24.5 (10-20); Calcium 8.8 mg/dl (8.5-10.1); Est GFR (African American) 93.4 ml/min; Est GFR (Non-African American) 80.6 ml/min; Potassium 3.9 mmol/L (3.5-5.1)
[2023-01-13 07:56] LABS: Hematocrit (blood only) 39.4 % (42.0-52.0); Hemoglobin 12.5 g/dl (14.0-18.0); Mean Corpuscular Hemoglobin 28.9 pg (25.0-34.0); Mean Corpuscular Hgb Conc 31.7 g/dL (32.0-36.0); Platelet Count 78 K/uL (130-400); RDW Coefficient of Variation 14.8 % (11.5-14.5); RDW Standard Deviation 49.7 fL (36.4-46.3); Red Blood Count 4.33 M/uL (4.70-6.10); White Blood Count 4.54 K/ul (4.8-10.8)
[2023-01-13] MEDS: INSULIN ASPART PER UNIT SC SCH ×4 (07:59→20:36)
[2023-01-13] MEDS: ASPIRIN 81 MG ECTAB PO SCH (08:00)
[2023-01-13] MEDS: carvediloL 6.25 MG TAB PO SCH ×2 (08:01→20:44)
[2023-01-13] MEDS: AZITHROMYCIN 250 MG TAB PO SCH (08:01)
[2023-01-13] MEDS: CLOPIDOGREL BISULFATE 75 MG TAB PO SCH (08:01)
[2023-01-13] MEDS: FUROSEMIDE 40 MG/4 ML VIAL IV SCH (08:02)
[2023-01-13] MEDS: FLUTICASONE/VILANTEROL 100/25MCG 14 PUFFS/INHALER INH SCH (08:02)
[2023-01-13] MEDS: guaiFENesin 600 MG TABCR PO SCH ×2 (08:03→20:43)
[2023-01-13] MEDS: LIDOCAINE 5% 1 PATCH TD SCH (08:03)
[2023-01-13] MEDS: GABAPENTIN 600 MG TAB PO SCH ×2 (08:03→20:43)
[2023-01-13] MEDS: TAMSULOSIN HCL 0.4 MG CAP PO SCH (08:05)
[2023-01-13] MEDS: UMECLIDINIUM BROMIDE 62.5MCG/BLISTER 7 PUFFS/INHALER INH SCH (08:06)
[2023-01-13] MEDS: guaiFENesin/DEXTROM SYRUP 100MG/10MG 5ML UDC PO PRN ×2 (08:06→20:44)
--- NOTE | 2023-01-13 08:50 | Consultation ---
Date of Consultation January 13, 2023 Assessment & Plan (1) Compression fracture: Rodrigo presented to the ER with an acute exacerbation of his CHF, shortness of breath and COVID-positive. There is an incidental finding of an L1 compression fracture. On imaging/lumbar CT there is evidence of vertebral [place]. Treatment is conservative in light of his extensive medical history and acute issues. Unfortunately because of his coughing and shortness of breath with associated hypoxia he is a poor candidate for bracing. Would not recommend surgical intervention at this point in time. Ambulate ad tiffany. Recommend lifting no greater than 5 pounds. We will follow him up in the office in 2 to 3 weeks or when stable. Will sign off. Please do not hesitate to contact us if you have any further questions. History of Present Illness Reason for Consultation: L1 compression fracture Attending Physician: Toñito Roberto MD History of Present Illness Is 67-year-old gentleman that presented to the ER on January 11, 2023 with complaint of right-sided chest pain, coughing and shortness of breath. He was admitted to the hospitalist team. He was found to have an acute exacerbation of his CHF. He is also COVID-positive. he denies any specific accident, trauma, fall. On initial work-up/chest CT an incidental L1 compression fracture was noted. Allergies Allergy/AdvReac Type Severity Reaction Status Date / Time No Known Allergies Allergy Verified 01/15/23 09:39 Home Medications Medication Instructions Recorded Confirmed Type tamsulosin 0.4 mg capsule 0.4 mg PO DAILY #90 caps 01/28/22 01/15/23 Rx pen needle, diabetic 31 gauge x #100 ea 09/22/22 01/15/23 Rx /16" (BD Ultra-Fine Mini Pen Needle) albuterol sulfate 90 mcg/actuation 2 puff inhalation QID PRN 10/07/22 01/15/23 Rx aerosol inhaler shortness of breath or wheezing #6.7 grams aspirin 81 mg tablet,delayed 81 mg PO DAILY 10/07/22 01/15/23 History release metformin 500 mg tablet 1,000 mg PO BID 10/07/22 01/15/23 History pravastatin 40 mg tablet 40 mg PO HS 10/07/22 01/15/23 History fluticasone fur. 100 mcg-umeclid 1 inh inhalation DAILY 10/14/22 01/15/23 History 62.5 mcg-vilant 25 mcg inhalat.powder (Trelegy Ellipta) furosemide 40 mg tablet (Lasix) 40 mg PO DAILY #30 tabs 10/14/22 01/15/23 Rx insulin glargine 100 unit/mL (3 23 - 26 unit subcut HS 10/14/22 01/15/23 History mL) subcutaneous pen (Lantus Solostar U-100 Insulin) carvedilol 6.25 mg tablet 6.25 mg PO BID #180 tabs 10/29/22 01/15/23 Rx clopidogrel 75 mg tablet 75 mg PO DAILY #90 tabs 10/29/22 01/15/23 Rx cyclobenzaprine 10 mg tablet 10 mg PO TID PRN muscle spasm #15 11/30/22 01/15/23 Rx tabs gabapentin 600 mg tablet 600 mg PO BID #60 tabs 11/30/22 01/15/23 Rx blood sugar diagnostic (OneTouch #100 ea 01/13/23 01/15/23 Rx Ultra Test strips) blood-glucose meter (OneTouch #1 ea 01/13/23 01/15/23 Rx Ultra2 Meter) lancets (OneTouch UltraSoft #100 ea 01/13/23 01/15/23 Rx Lancets) Patient History Medical History BPH (benign prostatic hyperplasia) Cerumen impaction DM (diabetes mellitus), type 2, uncontrolled Elevated liver enzymes Hepatitis C infection Hyperlipidemia Vertebral artery stenosis Surgical History H/O cardiac catheterization History of hand surgery History of hernia repair History of surgical procedure Carotid Artery Catheterization S/P complete atrioventricular canal repair Family History Mother Myocardial infarction Cardiac disorder Father Myocardial infarction Daughter Asthma Brother Cardiac disorder Congestive heart failure Diabetes Sister Diabetes Denies family history of Ovarian cancer Prostate cancer Breast cancer Colorectal cancer Social History Smoking Status: Current some day smoker Tobacco Type: Cigarettes Cigarettes Per Day: 16; Second Hand Exposure: Yes; Hx Alcohol Use: No Hx Substance Use: No Preferred Language: [place] Communication Ability: Effective Coil Tester Required: No Beliefs That Will Affect Care: None marital status: Current Living Situation: Other Current Living Situation Comment: roomate current occupational status: disabled How many Children do You have: 3 Feels Safe at Home: Yes Childhood Exposure to Second-Hand Smoke: Yes caffeine: Yes Dental Care, Regularly: No Physical Activity Frequency: 1-2 Times per Week Seatbelt Use: always Sunscreen Use: No Assistive Devices: None Review of Systems Review of Systems: All systems reviewed & are unremarkable except as noted in HPI & below Physical Exam Physical Exam: Resting Results & Data ([facility]) Vital Signs (Past 12 Hours) Vital Signs Temp Pulse Pulse Resp BP BP Pulse Ox 01/13/23 07:30 36.9 C 88 20 100/75 98 01/12/23 23:00 105 H 01/13/23 03:12 36.7 C 99 H 16 94/70 L 93 01/12/23 23:07 36.9 C 104 H 18 93/66 L 96 01/12/23 21:52 O2 Del Method O2 Flow Rate 01/13/23 07:30 Nasal Cannula 2 01/12/23 23:00 01/13/23 03:12 Nasal Cannula 2 01/12/23 23:07 Nasal Cannula 2 01/12/23 21:52 Nasal Cannula 2 Diagnostic Findings [place], [place] [phone] CT Scan Report Patient:RODRIGO SCRUGGS I Admit Date:01/11/23 MR#:[id number] Address1:[address] [place] [address] Acct ID:[id number] Address2: Date:1955 [facility] Zip:[place] [address] Age:67 Location: Sex:M Room/Bed:[facility] Att Phy:Toñito Roberto MD Diagnosis:CHF EXACERBATION, SOB, COVID-19 Elana Phy:Kerry Heller MD Service Date:01/12/23 Fam Phy: Interpreting Phy:Star Padgett MDAdmit Phy:Bobbi Colon DO Ordering Phy:Toñito Roberto MD cc: ~ CT lumbar spine wo con CLINICAL HISTORY: back pain, Lumbar spine fracture TECHNIQUE: Multidetector row helical CT of the lumbar spine was performed without administration of intravenous contrast. Coronal and sagittal reformations were obtained. Automated dose lowering techniques and/or adjustment according to patient size were utilized for this exam. CT DOSE: 719.10 mGy.cm Comparison: Comparison is made to CTA chest 01/11/2023 and CTA chest 07/20/2022 FINDINGS: For counting purposes, the last complete intervertebral disc space is considered L5-S1. There is vertebral plana of L1, similar to appearance on CTA chest 01/11/2023 but new from 07/20/2022. There is approximately 9 mm retropulsion. Degenerative changes are seen in the spine. Vertebral body alignment is within normal limits. Atherosclerotic changes are seen in the aorta. Partial visualization of bilateral pleural effusions. IMPRESSION: Vertebral plana of L1 with approximately 9 mm retropulsion is new from 2021. Degenerative changes are seen spine. ACT 112: Negative or not required by law. Electronically signed by: Star Padgett M.D. 01/12/2023 9:31 PM Dictated:01/12/23 184 Transcribed: 01/12/23 184
--- NOTE | 2023-01-13 12:39 | Hospitalist Progress Note ---
Date of Service January 13, 2023 Assessment & Plan (1) Acute exacerbation of CHF (congestive heart failure): Plan: Admitted on account of cough, sob and found to be hypoxic 84% Although Admits to dietary indiscretion Chest x ray showed evidence of pulm congestion However, patient appears compensated and close to his dry weight of 188 pounds (he is 189 pounds) I think he just had transient hypoxia Last echo 10/07/2022 showed LVEF of 30-35% as well as significant diastolic dysfunction IV Lasix received in the ER, continue 40 mg IV daily with strict intake and output, daily weights Also received albuterol neb after which his hypoxia resolved CHF program referral placed. (2) HFrEF (heart failure with reduced ejection fraction): Plan: chronic without acute exacerbation (3) COVID-19: Plan: Noted on admission testing, and was hypoxic on arrival. currently on room air (4) DM2 (diabetes mellitus, type 2): Plan: Appreciate glycemic management consult, sliding scale insulin ordered. A1c 5.7%. (5) Coronary artery disease: Plan: No evidence of ACS given normal troponin with chest pain for 4 days, no EKG changes Continue aspirin, Plavix, statin (6) COPD (chronic obstructive pulmonary disease): Plan: History of, reports has been smoking "for his whole life", no cigarettes for the last 5 days during his illness With wheezing initially on exam, but resolved after albuterol nebulizer x1, will order albuterol nebs as needed but given patient is saturating well on room air at this point will defer IV steroids. (7) Right-sided chest pain: Plan: most likely musculoskeletal, now resolved No ekg changes Lidocaine patches for chest wall pain Tessalon perles as needed for cough Plan Lovenox 40 mg daily for DVT prophylaxis Low-sodium diabetic diet Telemetry for cardiac monitoring Patient is a full code patient was going to be discharged today, but he could not get a ride home Admission and Anticipated Discharge Date Admission Date: January 11, 2023 Subjective patient seen and examined, denies chest pain, but complains of cough Review of Systems Review of Systems: All systems reviewed are negative, apart from the ones contained in the history. Physical Exam Physical Exam: The patient is awake, alert and oriented 3, well developed and well nourished, normocephalic and atraumatic, lying in bed and in no acute distress. HEENT--PERRL, EOMI, mucous membranes and oropharynx mildly dry Neck--supple. No JVD. No bruits. Thyroid normal, trachea midline, no adenopathy. Heart--normal S1 and S2. No murmurs, rubs or gallops. Lungs--clear bilaterally, no respiratory distress, no accessory muscle use. Abdomen--normal bowel sounds and soft. Mild epigastric and left sided abdominal pain Extremities--no cyanosis or clubbing. No edema. Dermatologic--normal skin turgor, normal color, no abnormal lymph nodes, no rash. Neurologic--cranial nerves II through XII grossly intact. Rheumatologic--normal range of motion. Psychiatric--normal affect. Results & Data Results & Data ([facility]) Vital Signs (Past 12 Hours) Vital Signs Temp Pulse Pulse Resp BP BP Pulse Ox 01/13/23 12:05 98.1 F 90 19 101/71 100/75 96 01/13/23 11:55 98.1 F 90 19 101/71 96 01/13/23 09:00 95 H 01/13/23 09:00 01/13/23 07:30 98.4 F 88 20 100/75 98 01/13/23 03:12 98.1 F 99 H 16 94/70 L 93 O2 Del Method O2 Flow Rate 01/13/23 12:05 01/13/23 11:55 Room Air 01/13/23 09:00 01/13/23 09:00 Room Air 01/13/23 07:30 Nasal Cannula 2 01/13/23 03:12 Nasal Cannula 2 PG Care Time/CCT Total # of Minutes Spent Total Time Spent with Patient: Total time spent is greater than 50% in coordination of care (as documented) at patient's floor/unit and/or counseling patient: Coding Level of Care Code 58410 SUB INP/OBS CARE 2/35MIN Diagnoses Acute exacerbation of CHF (congestive heart failure) I50.9 HFrEF (heart failure with reduced ejection fraction) I50.20 COVID-19 U07.1 DM2 (diabetes mellitus, type 2) E11.9 Coronary artery disease I25.10 COPD (chronic obstructive pulmonary disease) J44.9 Right-sided chest pain R07.9 Time Spent (min) 35
[2023-01-13] MEDS: PRAVASTATIN SOD 40 MG TAB PO SCH (20:43)
[2023-01-13] MEDS: ENOXAPARIN INJ 40 MG/0.4 ML SYR SQ SCH (20:44)
[2023-01-14 06:42] LABS: Hematocrit (blood only) 40.1 % (42.0-52.0); Mean Corpuscular Hemoglobin 29.2 pg (25.0-34.0); Mean Corpuscular Hgb Conc 32.4 g/dL (32.0-36.0); Mean Corpuscular Volume 90.1 fL (80.0-100.0); Mean Platelet Volume 11.9 fL (9.4-12.4); Platelet Count 101 K/uL (130-400); RDW Coefficient of Variation 14.7 % (11.5-14.5); RDW Standard Deviation 49.2 fL (36.4-46.3); Red Blood Count 4.45 M/uL (4.70-6.10); White Blood Count 4.68 K/ul (4.8-10.8)
[2023-01-14 06:43] LABS: Calcium 8.8 mg/dl (8.5-10.1); Creatinine Clr Calc Pharmacy 78.4 ml/min; Est GFR (African American) 91.1 ml/min; Est GFR (Non-African American) 78.6 ml/min; Potassium 3.9 mmol/L (3.5-5.1)
[2023-01-14] MEDS: INSULIN ASPART PER UNIT SC SCH (08:38)
[2023-01-14] MEDS: ASPIRIN 81 MG ECTAB PO SCH (08:44)
[2023-01-14] MEDS: AZITHROMYCIN 250 MG TAB PO SCH (08:45)
[2023-01-14] MEDS: carvediloL 6.25 MG TAB PO SCH (08:45)
[2023-01-14] MEDS: CLOPIDOGREL BISULFATE 75 MG TAB PO SCH (08:46)
[2023-01-14] MEDS: FLUTICASONE/VILANTEROL 100/25MCG 14 PUFFS/INHALER INH SCH (08:46)
[2023-01-14] MEDS: GABAPENTIN 600 MG TAB PO SCH (08:47)
[2023-01-14] MEDS: guaiFENesin/DEXTROM SYRUP 100MG/10MG 5ML UDC PO PRN (08:47)
[2023-01-14] MEDS: LIDOCAINE 5% 1 PATCH TD SCH (08:48)
[2023-01-14] MEDS: guaiFENesin 600 MG TABCR PO SCH (08:48)
[2023-01-14] MEDS: TAMSULOSIN HCL 0.4 MG CAP PO SCH (08:48)
[2023-01-14] MEDS: UMECLIDINIUM BROMIDE 62.5MCG/BLISTER 7 PUFFS/INHALER INH SCH (08:49)
[2023-01-14] MEDS ORDERED: FUROSEMIDE 40 MG TAB PO SCH (09:00)
--- NOTE | 2023-01-14 13:43 | Discharge Summary ---
Date of Service January 14, 2023 Admission HPI Per Admitting Provider 67-year-old male past medical history significant for HFrEF, DM 2, CAD status post CABG x5, COPD presented to the ER for about 4 days of worsening shortness of breath and cough with associated right chest wall pain. Pain is worse with cough and with deep breaths. He notes that over the last 3 months he has had a progressive worsening in his breathing since discharge from the hospital, such that he has dyspnea on exertion for example when he goes to the grocery store, and also has difficulty with lying flat. He reports compliance with taking his furosemide at home. But does admit to dietary indiscretion including deli meats, canned foods, and the occasional freezer meal. He denies any sore throat, nasal congestion, fevers, known sick contacts, nausea, diarrhea. He is COVID vaccinated and boosted. Patient reports compliance with his Trelegy Ellipta, and over the last couple of days admits to using his albuterol inhaler "a handful of times". In the ER patient noted to be briefly hypoxic to 84%, received a nebulizer with resolution of hypoxia and is now saturating to 100% on room air. Chest x-ray and chest CTA with evidence of pulmonary edema with small to moderate bilateral pleural effusions. No evidence of pulmonary embolism or focal consolidation suggestive of pneumonia. Principal Diagnosis covid infection Discharge Exam The patient is awake, alert and oriented 3, well developed and well nourished, normocephalic and atraumatic, lying in bed and in no acute distress. HEENT--PERRL, EOMI, mucous membranes and oropharynx mildly dry Neck--supple. No JVD. No bruits. Thyroid normal, trachea midline, no adenopathy. Heart--normal S1 and S2. No murmurs, rubs or gallops. Lungs--clear bilaterally, no respiratory distress, no accessory muscle use. Abdomen--normal bowel sounds and soft. Mild epigastric and left sided abdominal pain Extremities--no cyanosis or clubbing. No edema. Dermatologic--normal skin turgor, normal color, no abnormal lymph nodes, no rash. Neurologic--cranial nerves II through XII grossly intact. Rheumatologic--normal range of motion. Psychiatric--normal affect. Discharge Data Allergies Allergy/AdvReac Type Severity Reaction Status Date / Time No Known Allergies Allergy Verified 01/11/23 16:58 Consultations 01/11/23 16:46 ED Decision to Admit Stat 01/11/23 19:36 [facility] CHF Program Referral Routine 01/12/23 15:47 Consult Orthopedic Surgery Routine Ordered Studies 01/11/23 14:09 CT angio chest PE protocol Stat 01/12/23 15:46 CT lumbar spine wo con Routine Hospital Course (1) Acute exacerbation of CHF (congestive heart failure): Acute CHF exacerbation has been ruled out, patient liklely had transient hypoxia He was Admitted on account of cough, sob and found to be hypoxic 84% Although Admits to dietary indiscretion Chest x ray showed evidence of pulm congestion However, patient appears compensated and close to his dry weight of 188 pounds (he is 189 pounds) I think he just had transient hypoxia Last echo 10/07/2022 showed LVEF of 30-35% as well as significant diastolic dysfunction IV Lasix received in the ER, continue 40 mg IV daily with strict intake and output, daily weights Also received albuterol neb after which his hypoxia resolved (2) HFrEF (heart failure with reduced ejection fraction): chronic without acute exacerbation (3) COVID-19: Noted on admission testing, and was hypoxic on arrival. currently on room air (4) DM2 (diabetes mellitus, type 2): Appreciate glycemic management consult, sliding scale insulin ordered. A1c 5.7%. (5) Coronary artery disease: No evidence of ACS given normal troponin with chest pain for 4 days, no EKG changes Continue aspirin, Plavix, statin (6) COPD (chronic obstructive pulmonary disease): History of, reports has been smoking "for his whole life", no cigarettes for the last 5 days during his illness With wheezing initially on exam, but resolved after albuterol nebulizer x1, will order albuterol nebs as needed but given patient is saturating well on room air at this point will defer IV steroids. (7) Right-sided chest pain: most likely musculoskeletal, now resolved No ekg changes Lidocaine patches for chest wall pain Tessalon perles as needed for cough Plan Lovenox 40 mg daily for DVT prophylaxis Low-sodium diabetic diet Telemetry for cardiac monitoring Patient is a full code patient was going to be discharged today, but he could not get a ride home Total Time Total Time Spent Total Time Spent (In Minutes): 35 Discharge Plan Discharge Items Patient Disposition: Home - Self-Care Reason For Visit: CHF EXACERBATION, SOB, COVID-19 Discharge Diagnosis: Transient hypoxia Condition on Discharge: Fair Activity: Resume your previous activity Non-emergency contact: Primary Care Provider and [employer] Call non-emergency contact if: you have any medication questions and your symptoms worsen Follow-up/Referrals: Kerry Heller MD [Primary Care Provider] - 01/19/23 11:30 am (Follow up on 01/19/23 at 11:30am) Sonia Guzman PA-C [[employer]] - 01/18/23 2:00 pm (Please arrive 15 min. prior to your schedule appointment. Thank you!) Diet: Heart Healthy Addtl Attending Provider Instructions: Please make appointment to follow up with the heart failure clinic Pending Studies at Discharge: No Stand-Alone Forms: My Instant Information, Smoking Cessation Medications and DC Order Prescriptions: Continued tamsulosin 0.4 mg capsule 0.4 mg PO DAILY Qty: 90 2RF (DME) pen needle, diabetic [BD Ultra-Fine Mini Pen Needle] 31 gauge x 3/16" needle See Dose Instructions .ROUTE .MEDSUPPLY Qty: 100 3RF Dose Instruction: As directed Rx Instructions: As directed 1 daily, 1 x daily carvedilol 6.25 mg tablet 6.25 mg PO BID Qty: 180 1RF Rx Instructions: must administer with a meal/food clopidogrel 75 mg tablet 75 mg PO DAILY Qty: 90 1RF Rx Instructions: TAKE 1 TABLET BY MOUTH ONCE DAILY. gabapentin 600 mg tablet 600 mg PO BID Qty: 60 2RF cyclobenzaprine 10 mg tablet 10 mg PO TID PRN (Reason: muscle spasm) Qty: 15 1RF (DME) OneTouch Ultra Test Strip See Rx Instructions .Route Qty: 100 0RF Rx Instructions: test 3 times daily (DME) blood-glucose meter [OneTouch Ultra2 Meter] Misc See Rx Instructions .Route Qty: 1 0RF Rx Instructions: test 3 times daily (DME) lancets [OneTouch UltraSoft Lancets] Misc See Rx Instructions .Route Qty: 100 0RF Rx Instructions: test 3 times daily Trelegy Ellipta 100-62.5-25 mcg blister with device 1 inh inhalation DAILY furosemide [Lasix] 40 mg tablet 40 mg PO DAILY Qty: 30 2RF Rx Instructions: Take 40 mg daily. If 3 pound weight gain, take additional dose. insulin glargine [Lantus Solostar U-100 Insulin] 100 unit/mL (3 mL) insulin pen 23 - 26 unit SQ HS Rx Instructions: PER PT "23-26 UNITS, WANTED 40+ UNITS, BSG OKAY AT 23-26" albuterol sulfate 90 mcg/actuation HFA aerosol inhaler 2 puff inhalation QID PRN (Reason: shortness of breath or wheezing) Qty: 6.7 3RF metformin 500 mg tablet 1,000 mg PO BID Rx Instructions: 500 mg PO TWO TABS IN AM AND 2 TABS IN PM; pravastatin 40 mg tablet 40 mg PO HS Rx Instructions: TAKE 1 TABLET BY MOUTH AT BEDTIME. aspirin 81 mg tablet,delayed release (DR/EC) 81 mg PO DAILY Rx Instructions: TAKE 1 TABLET BY MOUTH DAILY. Discontinued glimepiride 2 mg tablet 4 mg PO DAILY Qty: 60 5RF Discharge Orders: Discharge Order (Routine); Ordered 01/14/23 Ordered By: Toñito Garcia/Other Patient Handouts: COVID-19 Home Care, Heart Failure Care Admission Data Admit Date/Time: 01/11/23 17:32 Attending Provider: Toñito Roberto Admit Provider: Bobbi Colon Primary Care Provider: Kerry Heller Other Providers: Bobbi Colon ; Sonia Guzman ; Matias Liao Other Interventions: Discharge Summary Assessment (RN) Last Done: 01/14/23 09:35 Coding Level of Care Code HOSP INP/OBS DISCH >30 MIN Diagnoses Acute exacerbation of CHF (congestive heart failure) I50.9 HFrEF (heart failure with reduced ejection fraction) I50.20 COVID-19 U07.1 DM2 (diabetes mellitus, type 2) E11.9 Coronary artery disease I25.10 COPD (chronic obstructive pulmonary disease) J44.9 Right-sided chest pain R07.9 Time Spent (min) 35
== END 2023-01-14 11:20 | disposition home or self-care (01) ==
LOC: ED 11:27 → 2S 17:32 → SUATTDRO 17:32 → INTOOBSV 17:32 → 2S 19:01